=== PATIENT | female | born 1980 | race Hispanic/Latino ===

== ENCOUNTER 2018-02-05 16:45 | Emergency (ER) | payer SELFPAY ==
[2018-02-05 17:54] LABS: Absolute Lymphocytes (CBC) 0.9 K/uL (0.7-4.9); Absolute Monocytes 0.6 K/uL (0.1-1.3); Absolute Neutrophil 10.5 K/uL (1.8-8.0); Basophils % 0.2 % (0-1.3); Eosinophils % 0.2 % (0-4.4); Hematocrit 31.3 % (36.0-45.0); Lymphocytes % 7.5 % (15.3-44.8); MCH 23.3 pg (27.0-35.0); MCV 73.4 fL (80-100); MPV 7.9 fL (7.6-11.3); RBC Red Blood Cell Count 4.26 M/uL (3.86-4.86)
[2018-02-05 18:02] LABS: ALT/SGPT 13 U/L (12-78); AST/SGOT 12 U/L (15-37); Albumin 3.5 g/dL (3.4-5.0); Alkaline Phosphatase 124 U/L (45-117); Amylase Level 53 U/L (25-115); BUN Blood Urea Nitrogen 10 mg/dL (7-18); Bicarbonate 27 mmol/L (21-32); Bilirubin Direct 0.1 mg/dL (0-0.2); Bilirubin Total 0.4 mg/dL (0.2-1.0); Glucose Level 136 mg/dL (74-106); Lipase 153 U/L (73-393); Potassium 3.6 mmol/L (3.5-5.1); Protein, Total 7.6 g/dL (6.4-8.2); Sodium Level 139 mmol/L (136-145)
[2018-02-05 18:04] LABS: Urine Blood NEGATIVE (NEG); Urine Glucose NEGATIVE (NEG); Urine Protein TRACE (NEG); Urine Specific Gravity 1.025 (1.005-1.030)
[2018-02-05] MEDS ORDERED: MAGNE/ALUM HYDROXD 30 ML UCUP ONE (18:09)
[2018-02-05] MEDS ORDERED: LIDOCAINE VISCOUS 2% SOLN 15 ML UDC ONE (18:09)
[2018-02-05] MEDS ORDERED: ONDANSETRON 4 MG/2 ML VIAL ONE (18:09)
[2018-02-05 18:19] LABS: Urine Bacteria 20-50 /HPF (<20); Urine Culture Reflex Order REFLEXED; Urine RBC <5 /HPF (NONE SEEN)
[2018-02-05] MEDS ORDERED: KETOROLAC 30 MG/ML INJ ONE (18:57)
[2018-02-05] MEDS ORDERED: PEN G BENZ LA 1.2MU/2ML SYRINGE IM ONE (19:37)
--- NOTE | 2018-02-05 19:38 | ER ---
Nurse's Notes [facility] Name: Usha Romeo Age: 37 yrs Sex: Female : 1980 Arrival Date: 02/05/2018 Time: 16:47 Bed 17 Private MD: Diagnosis: Streptococcal pharyngitis;Upper abdominal pain, unspecified Presentation: 02/05 17:08 Presenting complaint: Patient states: body aches, sore throat, headache that began aj1 yesterday. Pt also reports chills. Denies cough. Pt states "I have gastritis pain because I took some antibiotics yesterday". Transition of care: patient was not received from another setting of care. Onset of symptoms was February 2018. Risk Assessment: Do you want to hurt yourself or someone else? Patient reports no desire to harm self or others. Initial Sepsis Screen: Does the patient meet any 2 criteria? No. Patient's initial sepsis screen is negative. Does the patient have a suspected source of infection? No. Patient's initial sepsis screen is negative. Care prior to arrival: None. 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 - Social history:: Smoking status: Patient uses tobacco products, denies chronic smoking, but will smoke occasionally. - Ebola Screening: : No symptoms or risks identified at this time. Screenin:57 Abuse screen: Denies threats or abuse. Denies injuries from another. Nutritional ch screening: No deficits noted. Tuberculosis screening: No symptoms or risk factors identified. Fall Risk None identified. Assessment: 17:57 General: Appears in no apparent distress. comfortable, Behavior is calm, cooperative, ch appropriate for age. Pain: Complains of pain in epigastric area and throat Pain currently is 8 out of 10 on a pain scale. Neuro: No deficits noted. Cardiovascular: Heart tones S1 S2 present Capillary refill < 3 seconds in bilateral fingers toes Clubbing of nail beds is absent Patient's skin is warm and dry. Respiratory: Airway is patent Respiratory effort is even, unlabored, Breath sounds are clear bilaterally. GI: Bowel sounds present X 4 quads. Abd is soft and non tender X 4 quads. Reports lower abdominal pain, upper abdominal pain, nausea. : No signs and/or symptoms were reported regarding the genitourinary system. EENT: Derm: Skin is pink, warm \\T\\ dry. Musculoskeletal: No signs and/or symptoms reported regarding the musculoskeletal system. 18:43 Reassessment: Patient appears in no apparent distress at this time. Patient and/or ch family updated on plan of care and expected duration. Pain level reassessed. Patient is alert, oriented x 3, equal unlabored respirations, skin warm/dry/pink. pt states her stomach feels better but she is still having headache and body aches. Patient states feeling better. Patient states symptoms have improved. 18:59 Reassessment: Patient appears in no apparent distress at this time. Damien at bedside ch explaining results with pt. 19:08 General: Appears in no apparent distress. comfortable, Behavior is calm, cooperative, ea appropriate for age. Pain: Complains of pain in abdomen and epigastric area. Neuro: Level of Consciousness is awake, alert, obeys commands, Oriented to person, place, time, situation. Cardiovascular: Patient's skin is warm and dry. Respiratory: Airway is patent Respiratory effort is even, unlabored, Respiratory pattern is regular, symmetrical, Breath sounds are clear bilaterally. GI: Bowel sounds present X 4 quads. Abd is soft and non tender X 4 quads. Reports lower abdominal pain, upper abdominal pain, nausea. : No signs and/or symptoms were reported regarding the genitourinary system. EENT: Reports sore throat. Derm: Skin is pink, warm \\T\\ dry. Musculoskeletal: No signs and/or symptoms reported regarding the musculoskeletal system. 19:55 Reassessment: Patient and/or family updated on plan of care and expected duration. Pain ea level reassessed. Patient is alert, oriented x 3, equal unlabored respirations, skin warm/dry/pink. Discharge instructions given to patient, verbalized the understanding of instructions Patient states feeling better. Patient states symptoms have improved. Vital Signs: 17:14 BP 110 / 75; Pulse 100; Resp 18 S; Temp 99.3(O); Pulse Ox 100% on R/A; Weight 78.02 kg aj1 (R); Pain 10/10; 18:43 BP 106 / 57; Pulse 80; Resp 15; Temp 98.8; Pulse Ox 98% on R/A; Pain 8/10; ch 19:09 BP 105 / 59; Pulse 80; Resp 18; Pulse Ox 100% ; Pain 7/10; ea ED Course: 16:47 Patient arrived in ED. mr 17:13 Triage completed. aj1 17:13 Arm band placed on. aj1 17:20 Damien Whyte PA is PHCP. [facility] 17:20 Otto Sampson MD is Attending Physician. [facility] 17:35 No apparent distress. Resting quietly. ch 17:35 No provider procedures requiring assistance completed. Urine collected: clean catch specimen. Inserted saline lock: 20 gauge in right antecubital area, using aseptic technique. Blood collected. 17:57 Yasmeen Zambrano, RN is Primary Nurse. 17:57 Patient has correct armband on for positive identification. Bed in low position. Call light in reach. Side rails up X 1. Pulse ox on. NIBP on. 18:43 No apparent distress. Resting quietly. ch 18:43 Door closed. Noise minimized. Lights dimmed. Warm blanket given. Pillow given. ch 19:01 Report given to Mira. 19:04 Mira Marroquin, RN is Primary Nurse. ea 19:37 Montana Schroeder MD is Referral Physician. [facility] 19:55 IV discontinued, intact, bleeding controlled, No redness/swelling at site. Pressure ea dressing applied. Administered Medications: 18:10 Drug: Zofran 4 mg Route: IVP; Site: right antecubital; ch 18:45 Follow up: Response: No adverse reaction; Marked relief of symptoms ch 18:10 Drug: GI Cocktail without - (Maalox Suspension 30 ml, Lidocaine Liquid 2 % 15 ch ml) Route: PO; 18:45 Follow up: Response: No adverse reaction; Marked relief of symptoms ch 19:05 Drug: Ketorolac 30 mg Route: IVP; Site: right antecubital; ea 19:38 Follow up: Response: No adverse reaction; Pain is decreased ea 19:37 Drug: Bicillin L-A 1.2 million units Route: IM; Site: left gluteus; ea 19:55 Follow up: Response: No adverse reaction ea Outcome: 19:37 Discharge ordered by MD. alejandra 19:54 Discharged to home ambulatory. yenifer 19:54 Condition: improved 19:54 Discharge instructions given to patient, Instructed on discharge instructions, follow up and referral plans. medication usage, Demonstrated understanding of instructions, follow-up care, medications, Prescriptions given X 2. 19:56 Patient left the ED. ea Signatures: Yasmeen Zambrano RN RN ch Johnson, Angela, RN RN aj1 Damien Whyte PA PA jmm Rivera, Maria mr Mira Marroquin RN RN ea
--- NOTE | 2018-02-05 19:38 | EDPHYS ---
Physician Documentation [facility] Name: Usha Romeo Age: 37 yrs Sex: Female : 1980 Arrival Date: 02/05/2018 Time: 16:47 Bed 17 Private MD: ED Physician Otto Sampson HPI: 02/05 17:32 This 37 yrs old Female presents to ER via Ambulatory with complaints of body jmm aches/chills/sore throat. 17:32 The patient presents with sore throat. Onset: The symptoms/episode began/occurred jmm gradually, 2 day(s) ago. Modifying factors: The symptoms are alleviated by nothing, the symptoms are aggravated by nothing. Associated signs and symptoms: Pertinent positives: chills. This is a 37 year old male with a history of DM that presents to the ED with sore throat beginning 2 days ago. Patient prescribed oral antibiotics and Tylenol. Patient states she developed abdominal pain today which similar to sunil episodes of gastritis. . 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 - Social history:: Smoking status: Patient uses tobacco products, denies chronic smoking, but will smoke occasionally. - Ebola Screening: : No symptoms or risks identified at this time. ROS: 17:32 Cardiovascular: Negative for chest pain, palpitations, and edema, Respiratory: Negative jmm for shortness of breath, cough, wheezing, and pleuritic chest pain. 17:32 Back: Negative for injury and pain, MS/Extremity: Negative for injury and deformity, Skin: Negative for injury, rash, and discoloration. 17:32 Constitutional: Positive for body aches, fever. 17:32 ENT: Positive for sore throat. 17:32 Abdomen/GI: Positive for abdominal pain. 17:32 Neuro: Positive for headache. 17:32 All other systems are negative. Exam: 17:32 Head/Face: atraumatic. jmm 17:32 Constitutional: The patient appears alert, awake, anxious. 17:32 ENT: Posterior pharynx: Uvula: normal, swelling, that is moderate, erythema, that is moderate. 17:32 Neck: ROM/movement: is normal. 17:32 Cardiovascular: Rate: normal, Rhythm: regular. 17:32 Respiratory: the patient does not display signs of respiratory distress, Respirations: normal, Breath sounds: are clear throughout. 17:32 Abdomen/GI: Inspection: abdomen appears normal, Bowel sounds: normal, Palpation: soft, nontender, in all quadrants. 17:32 Musculoskeletal/extremity: ROM: intact in all extremities. 17:32 Skin: Appearance: Color: normal in color. 17:32 Neuro: Orientation: is normal, Mentation: is normal, Memory: is normal. 17:32 Psych: Behavior/mood is pleasant, cooperative. Vital Signs: 17:14 BP 110 / 75; Pulse 100; Resp 18 S; Temp 99.3(O); Pulse Ox 100% on R/A; Weight 78.02 kg aj1 (R); Pain 10/10; 18:43 BP 106 / 57; Pulse 80; Resp 15; Temp 98.8; Pulse Ox 98% on R/A; Pain 8/10; ch 19:09 BP 105 / 59; Pulse 80; Resp 18; Pulse Ox 100% ; Pain 7/10; ea MDM: 17:21 Patient medically screened. [facility] 19:30 Data reviewed: vital signs, nurses notes, lab test result(s). Counseling: I had a [facility] detailed discussion with the patient and/or guardian regarding: the historical points, exam findings, and any diagnostic results supporting the discharge/admit diagnosis, lab results, the need for outpatient follow up, to return to the emergency department if symptoms worsen or persist or if there are any questions or concerns that arise at home. ED course: Patient has no abdominal pain on reevaluation. Patient is alert and non toxic in appearance in the ED. Symptoms appear consistent with strep pharyngitis. Patient given abx in the ED and advised to follow up with GI for abdominal pain. Patient given strict return precautions. Patient understood and agree with the plan of care. . 02/05 17:28 Order name: Amylase, Serum; Complete Time: 18:30 [facility] 02/05 17:28 Order name: Basic Metabolic Panel; Complete Time: 18:30 [facility] 02/05 17:28 Order name: CBC with Diff [facility] 02/05 17: Order name: Creatinine for Radiology; Complete Time: 18:30 [facility] 02/05 17:28 Order name: Hepatic Function; Complete Time: 18:30 [facility] 02/05 17:28 Order name: Lipase; Complete Time: 18:30 [facility] 02/05 17:28 Order name: Urine Microscopic Only; Complete Time: 18:30 [facility] 02/05 17:28 Order name: Strep; Complete Time: 18:30 [facility] 02/05 18:02 Order name: Urine Dipstick--Ancillary (enter results); Complete Time: 18:30 02/05 18:02 Order name: Urine --Ancillary (enter results); Complete Time: 18:30 02/05 18:21 Order name: Urine Culture [facility] 02/05 17:28 Order name: IV Saline Lock; Complete Time: 17:57 [facility] 02/05 17:28 Order name: Labs collected and sent; Complete Time: 17:57 [facility] 02/05 17:28 Order name: Urine Dipstick-Ancillary (obtain specimen); Complete Time: 17:57 jm Administered Medications: 18:10 Drug: Zofran 4 mg Route: IVP; Site: right antecubital; ch 18:45 Follow up: Response: No adverse reaction; Marked relief of symptoms ch 18:10 Drug: GI Cocktail without - (Maalox Suspension 30 ml, Lidocaine Liquid 2 % 15 ch ml) Route: PO; 18:45 Follow up: Response: No adverse reaction; Marked relief of symptoms ch 19:05 Drug: Ketorolac 30 mg Route: IVP; Site: right antecubital; ea 19:38 Follow up: Response: No adverse reaction; Pain is decreased ea 19:37 Drug: Bicillin L-A 1.2 million units Route: IM; Site: left gluteus; ea 19:55 Follow up: Response: No adverse reaction ea Disposition: 02/06 14:26 Co-signature as Attending Physician, Otto Sampson MD I agree with the assessment and diane plan of care. Disposition: 02/05/18 19:37 Discharged to Home. Impression: Streptococcal pharyngitis, Upper abdominal pain, unspecified. - Condition is Stable. - Discharge Instructions: Abdominal Pain, Adult, Pharyngitis, Strep Throat. - Prescriptions for omeprazole 40 mg Oral capsule,delayed release(DR/EC) - take 1 capsule by ORAL route once daily before a meal; 30 capsule. Carafate 1 gram Oral Tablet - take 2 tablet by ORAL route every 12 hours take on an empty stomach, beginning on waking and last dose at bedtime; 100 tablet. - Medication Reconciliation Form, Thank You Letter, Antibiotic Education, Prescription Opioid Use form. - Follow up: Montana Schroeder MD; When: 2 - 3 days; Reason: Recheck today's complaints, Continuance of care, Re-evaluation by your physician. Signatures: Dispatcher [employer] EDYasmeen Eldridge, RN RN Maribel Bailey RN RN aj1 Otto Sampson MD MD cha Mickail, Joel, PA PA jmm Antunez, Elena, RN RN ea Corrections: (The following items were deleted from the chart) 02/05 19:56 19:37 02/05/2018 19:37 Discharged to Home. Impression: Streptococcal pharyngitis; Upper ea abdominal pain, unspecified. Condition is Stable. Forms are Medication Reconciliation Form, Thank You Letter, Antibiotic Education, Prescription Opioid Use. Follow up: Montana Schroeder; When: 2 - 3 days; Reason: Recheck today's complaints, Continuance of care, Re-evaluation by your physician. ny
[2018-02-05 20:24] LABS: Blood Morphology Comment NOTED (NOT SEEN); Platelet Estimate INCR; Urine White Blood Cell Casts OK
== END 2018-02-05 19:56 | disposition home or self-care (01) ==
LOC: ER 16:45
DX: J02.0 Streptococcal pharyngitis (principal); R10.10 Upper abdominal pain, unspecified; E11.9 Type 2 diabetes mellitus without complications; F17.200 Nicotine dependence, unspecified, uncomplicated
CPT/HCPCS: 36415; 80048; 80076; 81003; 81015; 81025; 82150; 83690; 85025; 87081; 87086; 87088; 96372; 96374; 96375; 99284; J0561; J2405

== ENCOUNTER 2018-05-21 22:50 | Emergency (ER) | payer SELFPAY ==
--- NOTE | 2018-05-21 23:21 | EDPHYS ---
Physician Documentation [facility] Name: Usha Romeo Age: 37 yrs Sex: Female : 1980 Arrival Date: 05/21/2018 Time: 22:55 Bed 28 Private MD: ED Physician Otto Sampson HPI: 05/21 23:39 This 37 yrs old Female presents to ER via Ambulatory with complaints of Ear snw Pain. 23:39 The patient presents with a fullness, pain, tinnitus. The complaints affect the right snw ear. Onset: The symptoms/episode began/occurred suddenly, 2 day(s) ago, and became persistent. Associated signs and symptoms: Pertinent positives: tinnitus, lightheadedness. Severity of symptoms: At their worst the symptoms were moderate. The patient has not experienced similar symptoms in the past. It is unknown whether or not the patient has recently seen a physician. 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 - Social history:: Smoking status: Patient uses tobacco products, denies chronic smoking, but will smoke occasionally. - Ebola Screening: : No symptoms or risks identified at this time. ROS: 23:38 Eyes: Negative for injury, pain, redness, and discharge, Neck: Negative for injury, snw pain, and swelling, Cardiovascular: Negative for chest pain, palpitations, and edema, Respiratory: Negative for shortness of breath, cough, wheezing, and pleuritic chest pain, Abdomen/GI: Negative for abdominal pain, nausea, vomiting, diarrhea, and constipation, Back: Negative for injury and pain, : Negative for injury, bleeding, discharge, and swelling, MS/Extremity: Negative for injury and deformity, Skin: Negative for injury, rash, and discoloration, Neuro: Negative for headache, weakness, numbness, tingling, and seizure. 23:38 Constitutional: Positive for malaise. 23:38 ENT: Positive for ear pain, tinnitus, ear popping, pain to ear with swallowing. Exam: 23:37 Head/Face: Normocephalic, atraumatic. Eyes: Pupils equal round and reactive to light, snw extra-ocular motions intact. Lids and lashes normal. Conjunctiva and sclera are non-icteric and not injected. Cornea within normal limits. Periorbital areas with no swelling, redness, or edema. Neck: Trachea midline, no thyromegaly or masses palpated, and no cervical lymphadenopathy. Supple, full range of motion without nuchal rigidity, or vertebral point tenderness. No Meningismus. Chest/axilla: Normal chest wall appearance and motion. Nontender with no deformity. No lesions are appreciated. Cardiovascular: Regular rate and rhythm with a normal S1 and S2. No gallops, murmurs, or rubs. Normal PMI, no JVD. No pulse deficits. Respiratory: Lungs have equal breath sounds bilaterally, clear to auscultation and percussion. No rales, rhonchi or wheezes noted. No increased work of breathing, no retractions or nasal flaring. Abdomen/GI: Soft, non-tender, with normal bowel sounds. No distension or tympany. No guarding or rebound. No evidence of tenderness throughout. Back: No spinal tenderness. No costovertebral tenderness. Full range of motion. Skin: Warm, dry with normal turgor. Normal color with no rashes, no lesions, and no evidence of cellulitis. MS/ Extremity: Pulses equal, no cyanosis. Neurovascular intact. Full, normal range of motion. Neuro: Awake and alert, GCS 15, oriented to person, place, time, and situation. Cranial nerves II-XII grossly intact. Motor strength 5/5 in all extremities. Sensory grossly intact. Cerebellar exam normal. Normal gait. 23:37 Constitutional: The patient appears alert, awake, uncomfortable. 23:37 ENT: External ear(s): are unremarkable, Ear canal(s): are normal, TM's: decreased mobility, erythema, that is moderate, on the right, Nose: is normal, Mouth: is normal, Posterior pharynx: is normal, Voice: is normal. Vital Signs: 23:19 BP 117 / 54; Pulse 91; Resp 16; Temp 98.2; Pulse Ox 100% on R/A; Height 5 ft. 5 in. kr2 (165.10 cm); Pain 10/10; MDM: 23:11 Patient medically screened. snw 23:39 Data reviewed: vital signs, nurses notes. Data interpreted: Pulse oximetry: on room air snw is 100 %. Counseling: I had a detailed discussion with the patient and/or guardian regarding: the historical points, exam findings, and any diagnostic results supporting the discharge/admit diagnosis, the need for outpatient follow up, to return to the emergency department if symptoms worsen or persist or if there are any questions or concerns that arise at home. Special discussion: Based on the history and exam findings, there is no indication for further emergent testing or inpatient evaluation. I discussed with the patient/guardian the need to see the ENT specialist for further evaluation of the symptoms. I discussed with the patient/guardian the need to see the primary care provider for further evaluation of the symptoms. Administered Medications: 23:34 Drug: predniSONE 40 mg Route: PO; kr2 23:42 Follow up: Response: Medication administered at discharge. kr2 23:34 Drug: Pepcid 20 mg Route: PO; kr2 23:42 Follow up: Response: Medication administered at discharge. kr2 23:34 Drug: Augmentin 875 mg Route: PO; kr2 23:42 Follow up: Response: Medication administered at discharge. kr2 23:34 Drug: Phenergan 25 mg Route: PO; kr2 23:42 Follow up: Response: No adverse reaction kr2 Disposition: 05/22 07:05 Co-signature as Attending Physician, Otto Sampson MD I agree with the assessment and diane plan of care. Disposition: 05/21/18 23:18 Discharged to Home. Impression: Acute suppurative otitis media, Acute upper respiratory infection, unspecified. - Condition is Stable. - Discharge Instructions: Otitis Media, Adult, Upper Respiratory Infection, Adult, Viral Respiratory Infection, Cool Mist Vaporizer, Rehydration, Adult, Heat Therapy. - Prescriptions for Augmentin 500- 125 mg Oral Tablet - take 1 tablet by ORAL route every 8 hours for 10 days; 30 tablet. Zyrtec 10 mg Oral Tablet - take 1 tablet by ORAL route once daily As needed; 20 tablet. Prednisone 20 mg Oral Tablet - take 2 tablet by ORAL route once daily for 5 days; 10 tablet. Pepcid 20 mg Oral Tablet - take 1 tablet by ORAL route once daily; 20 tablet. - Medication Reconciliation Form, Thank You Letter, Antibiotic Education, Prescription Opioid Use form. - Follow up: Private Physician; When: 1 week; Reason: Recheck today's complaints, Continuance of care, Re-evaluation by your physician. Follow up: Emergency Department; When: As needed; Reason: Worsening of condition. Signatures: Otto Sampson MD MD cha Therrien, Shelly, BAKER BENCH-C BAKER BENCH-Csnw Marleni Zambrano, RN RN kr2 Corrections: (The following items were deleted from the chart) 05/21 23:43 23:18 05/21/2018 23:18 Discharged to Home. Impression: Acute suppurative otitis media; kr2 Acute upper respiratory infection, unspecified. Condition is Stable. Forms are Medication Reconciliation Form, Thank You Letter, Antibiotic Education, Prescription Opioid Use. Follow up: Private Physician; When: 1 week; Reason: Recheck today's complaints, Continuance of care, Re-evaluation by your physician. Follow up: Emergency Department; When: As needed; Reason: Worsening of condition. snw
--- NOTE | 2018-05-21 23:21 | ER ---
Nurse's Notes [facility] Name: Usha Romeo Age: 37 yrs Sex: Female : 1980 Arrival Date: 05/21/2018 Time: 22:55 Bed 28 Private MD: Diagnosis: Acute suppurative otitis media;Acute upper respiratory infection, unspecified Presentation: 05/21 23:16 Presenting complaint: Patient states: She has had congestion and runny nose for 1 week. kr2 Today she was swallowing and heard a pop in her ear, now she has severe pain, buzzing and throbbing in her ear. She also has dizziness. 23:16 Transition of care: patient was not received from another setting of care. Onset of kr2 symptoms was May 21, 2018. Risk Assessment: Do you want to hurt yourself or someone else? Patient reports no desire to harm self or others. Initial Sepsis Screen: Does the patient meet any 2 criteria? No. Patient's initial sepsis screen is negative. Does the patient have a suspected source of infection? No. Patient's initial sepsis screen is negative. Care prior to arrival: None. 23:16 Acuity: KEO 5 kr2 23:16 Method Of Arrival: Ambulatory kr2 Triage Assessment: 23:16 General: Appears in no apparent distress. uncomfortable, well groomed, well developed, kr2 well nourished, Behavior is calm, cooperative, appropriate for age. Pain: Complains of pain in right ear Pain radiates to face Pain currently is 10 out of 10 on a pain scale. Quality of pain is described as aching, Is continuous, Alleviated by nothing. Aggravated by sound Noted to be grimacing. EENT: Reports nasal congestion since 1 week ago Buzzing sound. Neuro: Level of Consciousness is awake, alert, obeys commands, Oriented to person, place, time, situation, Appropriate for age. Cardiovascular: Capillary refill < 3 seconds Patient's skin is warm and dry. Respiratory: Airway is patent Respiratory effort is even, unlabored, Respiratory pattern is regular, symmetrical. Derm: Skin is intact, is healthy with good turgor, Skin is pink, warm \T\ dry. 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 - Social history:: Smoking status: Patient uses tobacco products, denies chronic smoking, but will smoke occasionally. - Ebola Screening: : No symptoms or risks identified at this time. Screenin:16 Abuse screen: Denies threats or abuse. Denies injuries from another. Nutritional kr2 screening: No deficits noted. Tuberculosis screening: No symptoms or risk factors identified. Fall Risk None identified. Assessment: 23:15 Reassessment: See triage assessment. kr2 Vital Signs: 23:19 BP 117 / 54; Pulse 91; Resp 16; Temp 98.2; Pulse Ox 100% on R/A; Height 5 ft. 5 in. kr2 (165.10 cm); Pain 10/10; ED Course: 22:55 Patient arrived in ED. al2 23:00 Sherice Vargas FNP-C [facility]. snw 23:00 Otto Sampson MD is Attending Physician. snw 23:16 Arm band placed on left wrist. kr2 23:20 Patient has correct armband on for positive identification. Bed in low position. Call kr2 light in reach. Side rails up X 1. Pulse ox on. NIBP on. Door closed. Head of bed elevated. 23:26 Marleni Zambrano, RN is Primary Nurse. kr2 23:38 Triage completed. kr2 23:41 No provider procedures requiring assistance completed. Patient did not have IV access kr2 during this emergency room visit. Administered Medications: 23:34 Drug: predniSONE 40 mg Route: PO; kr2 23:42 Follow up: Response: Medication administered at discharge. kr2 23:34 Drug: Pepcid 20 mg Route: PO; kr2 23:42 Follow up: Response: Medication administered at discharge. kr2 23:34 Drug: Augmentin 875 mg Route: PO; kr2 23:42 Follow up: Response: Medication administered at discharge. kr2 23:34 Drug: Phenergan 25 mg Route: PO; kr2 23:42 Follow up: Response: No adverse reaction kr2 Outcome: 23:18 Discharge ordered by . snw 23:41 Discharged to home ambulatory, with family. kr2 23:41 Condition: good 23:41 Discharge instructions given to patient, family, Instructed on discharge instructions, follow up and referral plans. medication usage, Demonstrated understanding of instructions, follow-up care, medications, Prescriptions given X 4. 23:43 Patient left the ED. kr2 Signatures: Sherice Vargas, RADIO TECHNICIAN-C RADIO TECHNICIAN-Csnw Marleni Zambrano RN RN kr2 Ness Pulido
[2018-05-21] MEDS ORDERED: AMOX/K CLAV 875 MG TAB ONE (23:36)
[2018-05-21] MEDS ORDERED: PROMETHAZINE 25 MG TABLET ONE (23:36)
[2018-05-21] MEDS ORDERED: predniSONE 20 MG TAB ONE (23:36)
[2018-05-21] MEDS ORDERED: FAMOTIDINE 20 MG TAB ONE (23:37)
== END 2018-05-21 23:43 | disposition home or self-care (01) ==
LOC: ER 22:50
DX: H66.001 Acute suppurative otitis media without spontaneous rupture of ear drum, right ear (principal); J06.9 Acute upper respiratory infection, unspecified; Z72.0 Tobacco use
CPT/HCPCS: 99283; J7512

== ENCOUNTER 2021-04-15 21:41 | Emergency (ER) | payer SELFPAY ==
[2021-04-15 22:19] LABS: Urine Blood Negative (Negative); Urine Glucose Trace (Negative); Urine Protein Negative (Negative); Urine pH 6.5 (5.0-7.0)
[2021-04-15 22:57] LABS: Absolute Lymphocytes (CBC) 1.8 K/uL (0.7-4.9); Basophils % 0.8 % (0-1.3); Hematocrit 39.4 % (36.0-45.0); Lymphocytes % 17.3 % (15.3-44.8); MPV 7.7 fL (7.6-11.3); RBC Red Blood Cell Count 4.99 M/uL (3.86-4.86)
[2021-04-15 23:03] LABS: ALT/SGPT 35 U/L (12-78); AST/SGOT 56 U/L (15-37); Albumin 3.5 g/dL (3.4-5.0); Alkaline Phosphatase 206 U/L (45-117); BUN Blood Urea Nitrogen 8 mg/dL (7-18); Bicarbonate 25 mmol/L (21-32); Bilirubin Direct 0.3 mg/dL (0-0.2); Bilirubin Total 0.6 mg/dL (0.2-1.0); Glucose Level 217 mg/dL (74-106); Lipase 119 U/L (73-393); Potassium 3.5 mmol/L (3.5-5.1); Protein, Total 8.1 g/dL (6.4-8.2); Sodium Level 134 mmol/L (136-145)
[2021-04-15] MEDS ORDERED: ONDANSETRON 4 MG/2 ML VIAL ONE ×2 (23:29→23:42)
[2021-04-15] MEDS ORDERED: MAGNES/ALUMIN/SIMET 30ML UCUP ONE ×2 (23:29→23:44)
[2021-04-15] MEDS ORDERED: PANTOPRAZOLE 40 MG INJ ONE ×2 (23:29→23:42)
[2021-04-15] MEDS ORDERED: LIDOCAINE VISCOUS 2% SOLN 15 ML UDC ONE ×2 (23:30→23:44)
--- NOTE | 2021-04-16 00:35 | EDPHYS ---
Physician Documentation [facility] Name: Usha Romeo Age: 40 yrs Sex: Female : 1980 Arrival Date: 04/15/2021 Time: 21:44 Bed 18 Private MD: ED Physician Richar Garcia HPI: 04/15 23:12 This 40 yrs old Female presents to ER via Wheelchair with complaints of jr8 Abdominal Pain, Vomiting, HANDS TINGLING, Low Back Pain, NO MENTRUAL FOR 3 MONTHS. 23:12 The patient presents with abdominal pain in the upper abdomen. Onset: The jr8 symptoms/episode began/occurred gradually. The symptoms do not radiate. Associated signs and symptoms: Pertinent positives: nausea and vomiting. The symptoms are described as stabbing. Modifying factors: The symptoms are alleviated by nothing, the symptoms are aggravated by food. Severity of pain: At its worst the pain was moderate in the emergency department the pain is unchanged. The patient has experienced similar episodes in the past, a few times. The patient has not recently seen a physician. This is a 40-year-old female patient that presented emergency room with upper abdominal pain and left flank pain. Patient stated that she has a history of stomach ulcers in the past. Currently on no medications. Also stated that she has had mild urinary complaints and has come concerned that the flank pain is turning into a urinary tract infection.. Historical: - Allergies: 22:03 No Known Allergies; df1 - Home Meds: 22:03 None [Active]; df1 - PMHx: 22:03 Anemia; Diabetes - Diet controlled; ulcers; kidney infection; df1 - PSHx: 22:03 Cholecystectomy; df1 - Immunization history:: Adult Immunizations up to date, Client reports having NOT received the Covid vaccine. - Social history:: Smoking status: Patient reports the use of cigarette tobacco products, smokes one-half pack cigarettes per day. ROS: 23:12 Eyes: Negative for injury, pain, redness, and discharge, ENT: Negative for injury, jr8 pain, and discharge, Neck: Negative for injury, pain, and swelling, Cardiovascular: Negative for chest pain, palpitations, and edema, Respiratory: Negative for shortness of breath, cough, wheezing, and pleuritic chest pain, Back: Negative for injury and pain, MS/Extremity: Negative for injury and deformity, Skin: Negative for injury, rash, and discoloration, Neuro: Negative for headache, weakness, numbness, tingling, and seizure. 23:12 Abdomen/GI: Positive for abdominal pain, nausea and vomiting, Negative for diarrhea. Exam: 23:12 Constitutional: This is a well developed, well nourished patient who is awake, alert, jr8 and in no acute distress. Cardiovascular: Regular rate and rhythm with a normal S1 and S2. No gallops, murmurs, or rubs. Normal PMI, no JVD. No pulse deficits. Respiratory: Lungs have equal breath sounds bilaterally, clear to auscultation and percussion. No rales, rhonchi or wheezes noted. No increased work of breathing, no retractions or nasal flaring. Back: No spinal tenderness. No costovertebral tenderness. Full range of motion. Skin: Warm, dry with normal turgor. Normal color with no rashes, no lesions, and no evidence of cellulitis. MS/ Extremity: Pulses equal, no cyanosis. Neurovascular intact. Full, normal range of motion. Neuro: Awake and alert, GCS 15, oriented to person, place, time, and situation. Cranial nerves II-XII grossly intact. Motor strength 5/5 in all extremities. Sensory grossly intact. Cerebellar exam normal. Normal gait. 23:12 Abdomen/GI: Inspection: obese Bowel sounds: active, all quadrants, Palpation: soft, in all quadrants, mild abdominal tenderness, in the left upper quadrant, moderate abdominal tenderness, in the epigastric area, mass, is not appreciated, rebound tenderness, is not appreciated, voluntary guarding, is not appreciated, involuntary guarding, is not appreciated, no appreciated organomegaly, Indicators: McBurney's point is not tender, Amher's sign is negative, Rovsing's sign is negative, Liver: tenderness, is not appreciated. Vital Signs: 22:00 BP 102 / 73; Pulse 111; Resp 18; Temp 98.8; Pulse Ox 100% on R/A; Weight 84.37 kg; df1 Height 5 ft. 2 in. (157.48 cm); Pain 10/10; 04/16 00:16 BP 101 / 80; Pulse 93; Resp 16 S; Pulse Ox 98% on R/A; Pain 4/10; sj1 04/15 22:00 Body Mass Index 34.02 (84.37 kg, 157.48 cm) df1 MDM: 04/15 22:31 Patient medically screened. jr8 04/16 00:19 Data reviewed: vital signs, nurses notes, lab test result(s), radiologic studies, CT jr8 scan. Data interpreted: Pulse oximetry: on room air is 98 %. Interpretation: normal. 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 Special discussion: Based on the patient's Hx, exam, and Dx evaluation, there is no indication for emergent surgery or inpatient Tx. It is understood by the patient/guardian that if the Sx's persist or worsen they need to return immediately for re-evaluation. 00:39 ED course: Discussed with patient that her upper abdominal pain is probably a sequela jr8 of her ulcers or gastritis. Patient is doing much better after being medicated. We will continue omeprazole and dicyclomine at home. He is to follow-up with gastroenterology. As far as the amenorrhea for the last 3 months patient is to follow-up with [facility] for Pap smear and possible hormone draw. Patient good with this plan at this time will follow up.. 04/15 22:19 Order name: Urine Dipstick-Ancillary; Complete Time: 22:47 EDMS 04/15 22:25 Order name: Basic Metabolic Panel; Complete Time: 23:10 em 04/15 22:25 Order name: CBC with Diff; Complete Time: 22:58 em 04/15 22:25 Order name: Hepatic Function; Complete Time: 23:10 em 04/15 22:25 Order name: Lipase; Complete Time: 23:10 em 04/15 23:24 Order name: Urine --Ancillary (enter results) sj1 04/15 22:25 Order name: IV Saline Lock; Complete Time: 22:40 em 04/15 22:56 Order name: CT Abd/Pelvis - IV Contrast Only jr8 04/15 23:25 Order name: Urine --Ancillary; Complete Time: 00:39 EDMS 04/15 23:48 Order name: Urine --Ancillary; Complete Time: 00:39 EDMS 04/15 22:25 Order name: Labs collected and sent; Complete Time: 22:40 em 04/15 22:56 Order name: Urine Test (obtain specimen); Complete Time: 23:21 jr8 Administered Medications: 04/15 23:20 Drug: Zofran (Ondansetron) 4 mg Route: IVP; Site: left antecubital; sj1 04/16 00:16 Follow up: Response: No adverse reaction; Pain is decreased sj1 04/15 23:20 Drug: ProTONIX (pantoprazole) 40 mg Route: IVP; Site: left antecubital; sj1 04/16 00:16 Follow up: Response: No adverse reaction; Pain is decreased sj1 04/15 23:20 Drug: GI Cocktail without - (Maalox Suspension 30 ml, Lidocaine Liquid 2 % 15 sj1 ml) Route: PO; 04/16 00:16 Follow up: Response: No adverse reaction; Pain is decreased sj1 Disposition: 01:59 Co-signature as Attending Physician, Richar Garcia MD I agree with the assessment and rn plan of care. Attestation: The patient's history, exam findings, diagnostics, and a summary of any interventions or procedures was reviewed in detail with Aramis WILLIAMSON. Disposition Summary: 04/16/21 00:34 Discharge Ordered Location: Home jr8 Problem: new jr8 Symptoms: have improved jr8 Condition: Stable jr8 Diagnosis - Acute gastritis jr8 Followup: jr8 - With: Private Physician - When: 2 - 3 days - Reason: Recheck today's complaints, Continuance of care, Re-evaluation by your physician Discharge Instructions: - Discharge Summary Sheet jr8 - Gastritis, Adult jr8 - Peptic Ulcer jr8 Forms: - Medication Reconciliation Form jr8 - Thank You Letter jr8 - Antibiotic Education jr8 - Prescription Opioid Use jr8 Prescriptions: - omeprazole 40 mg Oral capsule,delayed release(DR/EC) - take 1 capsule by ORAL route once daily before a meal; 30 capsule; Refills: 0, jr8 Product Selection Permitted - dicyclomine 20 mg Oral Tablet - take 1 tablet by ORAL route 3 times per day As needed; 20 tablet; Refills: 0, jr8 Product Selection Permitted Signatures: Dispatcher [employer] EDMS Ravindra Nolen, RN RN Richar Quiroz MD MD rn Roszak, Josh, PA PA jr8 Anastasia Bishop df1 Dottie Beckett RN RN sj1 Corrections: (The following items were deleted from the chart) 04/15 22:07 22:03 PMHx: Diabetes - NIDDM; df1 df1 04/16 00:13 04/15 23:49 URINE --ANCILLARY+UC.LAB.BRZ ordered. EDMS EDMS
--- NOTE | 2021-04-16 00:35 | ER ---
Nurse's Notes [facility] Name: Usha Romeo Age: 40 yrs Sex: Female : 1980 Arrival Date: 04/15/2021 Time: 21:44 Bed 18 Private MD: Diagnosis: Acute gastritis Presentation: 04/15 22:00 Chief complaint: Patient states: upper abd pain and left flank pain x 2 weeks df1 increasing today. Coronavirus screen: Vaccine status: Patient reports being unvaccinated. The client reports previous COVID testing was negative. Date of collection: January 2021. Ebola Screen: Patient negative for fever greater than or equal to 101.5 degrees Fahrenheit, and additional compatible Ebola Virus Disease symptoms Patient denies exposure to infectious person. Patient denies travel to an Ebola-affected area in the 21 days before illness onset. Initial Sepsis Screen: Does the patient meet any 2 criteria? No. Patient's initial sepsis screen is negative. Does the patient have a suspected source of infection? No. Patient's initial sepsis screen is negative. Risk Assessment: Do you want to hurt yourself or someone else? Patient reports no desire to harm self or others. 22:00 Method Of Arrival: Wheelchair df1 22:00 Acuity: KEO 3 df1 22:07 Note Pt states upper abd pain, left flank pain and some blood in urine. Symptoms worse df1 today. 23:42 Onset of symptoms was March 29, 2021. sj1 Triage Assessment: 23:26 General: Appears in no apparent distress. Behavior is calm, cooperative, appropriate sj1 for age. Pain: Complains of pain in left upper quadrant and epigastric area Pain does not radiate. Pain currently is 6 out of 10 on a pain scale. at worst was 10 out of 10 on a pain scale. level that patient reports is acceptable is 2 out of 10 on a pain scale. Quality of pain is described as sharp, Pain began 1 wk ago. EENT: No deficits noted. Neuro: No deficits noted. Cardiovascular: No deficits noted. Respiratory: No deficits noted. GI: Reports upper abdominal pain, epigastric pain. : Reports burning with urination. Derm: No deficits noted. Musculoskeletal: No deficits noted. Historical: - Allergies: 22:03 No Known Allergies; df1 - Home Meds: 22:03 None [Active]; df1 - PMHx: 22:03 Anemia; Diabetes - Diet controlled; ulcers; kidney infection; df1 - PSHx: 22:03 Cholecystectomy; df1 - Immunization history:: Adult Immunizations up to date, Client reports having NOT received the Covid vaccine. - Social history:: Smoking status: Patient reports the use of cigarette tobacco products, smokes one-half pack cigarettes per day. Screenin:24 Abuse screen: Denies threats or abuse. Denies injuries from another. Nutritional sj1 screening: No deficits noted. Tuberculosis screening: No symptoms or risk factors identified. Fall Risk None identified. Assessment: 23:29 GI: Bowel sounds present X 4 quads. Abd is soft Abdomen is tender to palpation. sj1 Vital Signs: 22:00 BP 102 / 73; Pulse 111; Resp 18; Temp 98.8; Pulse Ox 100% on R/A; Weight 84.37 kg; df1 Height 5 ft. 2 in. (157.48 cm); Pain 10/10; 04/16 00:16 BP 101 / 80; Pulse 93; Resp 16 S; Pulse Ox 98% on R/A; Pain 4/10; sj1 04/15 22:00 Body Mass Index 34.02 (84.37 kg, 157.48 cm) df1 ED Course: 04/15 21:44 Patient arrived in ED. cf2 22:03 Triage completed. df1 22:30 Inserted saline lock: 20 gauge in left antecubital area, using aseptic technique. Blood sj1 collected. 22:31 Aramis Flor PA is PHCP. jr8 22:31 Richar Garcia MD is Attending Physician. jr8 23:24 No provider procedures requiring assistance completed. sj1 23:24 Patient has correct armband on for positive identification. Bed in low position. Call sj1 light in reach. Side rails up X 1. 23:26 Arm band placed on right wrist. sj1 23:41 Urine --Ancillary (enter results) Sent. sj1 23:41 CT Abd/Pelvis - IV Contrast Only Sent. sj1 23:41 Urine --Ancillary Sent. sj1 23:50 CT Abd/Pelvis - IV Contrast Only In Process Unspecified. EDMS 04/16 00:44 IV discontinued, intact, bleeding controlled, No redness/swelling at site. sj1 Administered Medications: 04/15 23:20 Drug: Zofran (Ondansetron) 4 mg Route: IVP; Site: left antecubital; sj1 04/16 00:16 Follow up: Response: No adverse reaction; Pain is decreased sj1 04/15 23:20 Drug: ProTONIX (pantoprazole) 40 mg Route: IVP; Site: left antecubital; sj1 04/16 00:16 Follow up: Response: No adverse reaction; Pain is decreased sj1 04/15 23:20 Drug: GI Cocktail without - (Maalox Suspension 30 ml, Lidocaine Liquid 2 % 15 sj1 ml) Route: PO; 04/16 00:16 Follow up: Response: No adverse reaction; Pain is decreased sj1 Outcome: 00:34 Discharge ordered by . jr8 00:43 Discharged to home ambulatory. sj1 00:43 Condition: stable 00:43 Discharge instructions given to patient, Instructed on discharge instructions, follow up and referral plans. medication usage, Demonstrated understanding of instructions, follow-up care, medications, Prescriptions given X 2. 01:07 Patient left the ED. sj1 Signatures: Dispatcher [employer] EDMS Aramis Flor PA PA jr8 Avery Edwards cf2 Anastasia Bishop df1 Dottie Beckett, RN RN sj1 Corrections: (The following items were deleted from the chart) 04/15 22:07 22:03 PMHx: Diabetes - NIDDM; df1 df1
[2021-04-16 01:20] VITALS: TEMP 98.8
[2021-04-16 01:21] VITALS: BP 101/80; O2SAT 98
--- NOTE | 2021-04-16 10:21 | RAD REPORT ---
EXAM DESCRIPTION: CT - Abdomen Pelvis W Contrast - 04/16/2021 6:41 am CLINICAL HISTORY: 40 years Female ABD PAIN TECHNIQUE: CT of the abdomen and pelvis using intravenous contrast. All CT scans at this facility us e dose modulation, iterative reconstruction, and/or weight based dosing when appropriate to reduce ra diation dose to as low as reasonably achievable. COMPARISON: None. FINDINGS: Lower chest: Lung bases are clear. Abdomen/Pelvis: Liver: No focal lesion. Gallbladder: No calcified stone. Pancreas: Within normal limits. Spleen: Within normal limits. Kidney: No stone or hydronephrosis. Scarring the left kidney.. Adrenal glands: Within normal limits. Vascular structures: Unremarkable. Bowel: No bowel distention. Appendix: Normal. Peritoneum: No free fluid or free air. Lymph Nodes: No lymphadenopathy. Reproductive: Right ovarian cyst measuring 4.2 x 3.8 cm. Left ovarian cyst measuring 2.3 x 2.0 cm. Urinary bladder: Unremarkable. Osseous structures: Unremarkable. Soft tissues: Unremarkable. IMPRESSION: 1. No acute findings. 2. Bilateral simple ovarian cysts as above. No follow-up imaging is recommended. Reference: J Am Leigh Radiol 2013;[id number] Electronically signed by: Migue Jo MD 04/16/2021 12:09 AM CDT Due to temporary technical issues with the PACS/Fluency reporting system, reports are being signed by the in house radiologists without review as a courtesy to insure prompt reporting. The interpreting radiologist is fully responsible for the content of the report.
== END 2021-04-16 01:07 | disposition home or self-care (01) ==
LOC: ER 21:41
DX: K29.70 Gastritis, unspecified, without bleeding (principal); F17.210 Nicotine dependence, cigarettes, uncomplicated
CPT/HCPCS: 36415; 74177; 80048; 80076; 81003; 81025; 83690; 85025; 96374; 96375; 99284; C9113; J2405; Q9967

== ENCOUNTER 2021-10-22 07:20 | Emergency (ER) | payer SELFPAY ==
--- OUTSIDE RECORDS SUMMARY | 2021-10-22 07:24 | XMS REPORT | Continuity of Care Document ---
:1980 Author Organization [facility] t Address [address] [place] [address] [address] [place] [address] Care Team Providers Name Role Phone Jamila MALHOTRA, Bonita Brennan Attending Clinician Adelaide Jean-Baptiste MD Attending Clinician Andrew SMITH Attending Clinician Unavailable Payers Payer Name Policy Type Policy Number Effective Date Expiration Date [facility] MEDICAID [place] PENDING 2021 PENDING 00:00:00 Problems This patient has no known problems. Allergies, Adverse Reactions, Alerts Allergy Allergy Status Severity Reaction(s) Onset Inactive Treating Comm ents Source Name Type Date Date Clinician PROMETHA DRUG Active Unknown-Cmnt 2016-0 Un kathy ZINE HCL INGREDI -08 ity of 00:00: [address] Medications This patient has no known medications. Procedures This patient has no known procedures. Encounters Start End Encounter Admission Attending Care Care Encounter Source Date/Time Date/Time Type Type Clinicians Facility Department ID 2021-05-04 Emergency [facility] [id number] [facility] 11:53:02 [facility] of [facility] 2021-05-04 Emergency [facility] [id number] [facility] 05:49:40 ity of [facility] 2021-05-03 Emergency [facility] [id number] [facility] 03:43:41 ity [facility] 2021-05-01 Emergency [facility] [id number] [facility] 11:24:45 ity [facility] 2021-05-01 Emergency [facility] [id number] [facility] 07:34:38 [facility] 2020-02-10 2020-02-10 Emergency Jamila, TRAUMA [id number] 18:50:00 23:45:00 [facility] [id number] 2020-01-21 2020-01-21 Emergency Vasut, TRAUMA [id number] 08:10:19 11:57:00 [facility] [id number] 2019-06-04 2019-06-05 Emergency X SARAH, [facility] ERT [id number] Univers 20:45:32 02:02:00 TANA [facility] Results This patient has no known results.
--- NOTE | 2021-10-22 07:54 | ER ---
Nurse's Notes [facility] Name: Usha Romeo Age: 40 yrs Sex: Female : 1980 Arrival Date: 10/22/2021 Time: 07:28 Bed Waiting [facility] MD: Diagnosis: Acute serous otitis media, left ear Presentation: 10/22 07:41 Chief complaint: Patient states: Left ear pain x 1 day, minor nasal congestion and sore jl7 throat. Coronavirus screen: At this time, the client does not indicate any symptoms associated with coronavirus-19. Ebola Screen: No symptoms or risks identified at this time. Initial Sepsis Screen: Does the patient meet any 2 criteria? No. Patient's initial sepsis screen is negative. Does the patient have a suspected source of infection? No. Patient's initial sepsis screen is negative. Risk Assessment: Do you want to hurt yourself or someone else? Patient reports no desire to harm self or others. Onset of symptoms was October 21, 2021. 07:41 Method Of Arrival: Ambulatory jl7 07:41 Acuity: KEO 4 jl7 Triage Assessment: 07:42 General: Appears in no apparent distress. uncomfortable, Behavior is calm, cooperative, jl7 appropriate for age. Pain: Complains of pain in left ear. EENT: Reports nasal congestion pain in left ear. 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 - Social history:: Smoking status: Patient denies any tobacco usage or history of. Patient/guardian denies using alcohol, street drugs, The patient lives with family. - Family history:: not pertinent. Screenin:48 Abuse screen: Denies threats or abuse. Denies injuries from another. Nutritional jl7 screening: No deficits noted. Tuberculosis screening: No symptoms or risk factors identified. Fall Risk None identified. Assessment: 07:48 Reassessment: Dr. Shah in triage assessing pt. jl7 Vital Signs: 07:41 BP 116 / 63; Pulse 79; Resp 17; Temp 97; Pulse Ox 97% ; Pain 9/10; jl7 ED Course: 07:28 Patient arrived in ED. am2 07:42 Triage completed. jl7 07:42 Arm band placed on right wrist. jl7 07:48 Patient has correct armband on for positive identification. jl7 07:48 No provider procedures requiring assistance completed. Patient did not have IV access jl7 during this emergency room visit. 07:49 Basim Shah MD is Attending Physician. minh2 Administered Medications: No medications were administered Outcome: 07:53 Discharge ordered by . ma2 08:02 Discharged to home ambulatory. jl7 08:02 Condition: stable 08:02 Discharge instructions given to patient, Instructed on discharge instructions, follow up and referral plans. medication usage, Demonstrated understanding of instructions, follow-up care, medications, Prescriptions given X 2. 08:03 Patient left the ED. jl7 Signatures: Obdulia Erickson RN RN jl7 Christina Schmid am2 Basim Shah MD MD or2 Corrections: (The following items were deleted from the chart) 07:43 07:42 PMHx: Diabetes - Diet controlled; jl7 jl7
--- NOTE | 2021-10-22 07:54 | EDPHYS ---
Physician Documentation [facility] Name: Usha Romeo Age: 40 yrs Sex: Female : 1980 Arrival Date: 10/22/2021 Time: 07:28 Bed Waiting Private MD: ED Physician Basim Shah HPI: 10/22 07:52 This 40 yrs old Female presents to ER via Ambulatory with complaints of Ear ma2 Pain, Sore Throat. 07:52 Left ear pain for 2 days mild constant intermittent, mild no fever, mild sore throat, ma2 no cough.. 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 - Social history:: Smoking status: Patient denies any tobacco usage or history of. Patient/guardian denies using alcohol, street drugs, The patient lives with family. - Family history:: not pertinent. ROS: 07:52 Constitutional: Negative for fever, chills, and weight loss. ma2 07:52 All other systems are negative. Exam: 07:52 Constitutional: This is a well developed, well nourished patient who is awake, alert, ma2 and in no acute distress. Head/Face: Normocephalic, atraumatic. Eyes: Pupils equal round and reactive to light, extra-ocular motions intact. Lids and lashes normal. Conjunctiva and sclera are non-icteric and not injected. Cornea within normal limits. Periorbital areas with no swelling, redness, or edema. ENT: Left TM is red, otherwise nares patent. No nasal discharge, no septal abnormalities noted. Tympanic membranes are normal and external auditory canals are clear. Oropharynx with no redness, swelling, or masses, exudates, or evidence of obstruction, uvula midline. Mucous membranes moist. Chest/axilla: Normal chest wall appearance and motion. Nontender with no deformity. No lesions are appreciated. Cardiovascular: Regular rate and rhythm with a normal S1 and S2. No gallops, murmurs, or rubs. Normal PMI, no JVD. No pulse deficits. Respiratory: Lungs have equal breath sounds bilaterally, clear to auscultation and percussion. No rales, rhonchi or wheezes noted. No increased work of breathing, no retractions or nasal flaring. Abdomen/GI: Soft, non-tender, with normal bowel sounds. No distension or tympany. No guarding or rebound. No evidence of tenderness throughout. Neuro: Awake and alert, GCS 15, oriented to person, place, time, and situation. Cranial nerves II-XII grossly intact. Motor strength 5/5 in all extremities. Sensory grossly intact. Cerebellar exam normal. Normal gait. Vital Signs: 07:41 BP 116 / 63; Pulse 79; Resp 17; Temp 97; Pulse Ox 97% ; Pain 9/10; jl7 MDM: 07:52 Differential diagnosis: otitis media, otitis externa, acute otalgia, cerumen impaction. ma2 Data reviewed: vital signs, nurses notes. Counseling: I had a detailed discussion with the patient and/or guardian regarding: the historical points, exam findings, and any diagnostic results supporting the discharge/admit diagnosis, the presence of at least one elevated blood pressure reading (>120/80) during this emergency department visit, the need for outpatient follow up. Response to treatment: the patient's symptoms have markedly improved after treatment. 07:53 Patient medically screened. ma2 Administered Medications: No medications were administered Disposition Summary: 10/22/21 07:53 Discharge Ordered Location: Home ma2 Condition: Stable ma2 Diagnosis - Acute serous otitis media, left ear ma2 Followup: ma2 - With: Private Physician - When: Tomorrow - Reason: If symptoms return, Continuance of care Discharge Instructions: - Discharge Summary Sheet ma2 - Otitis Media, Adult ma2 Forms: - Medication Reconciliation Form ma2 - Thank You Letter ma2 - Antibiotic Education ma2 - Prescription Opioid Use ma2 Prescriptions: - NAPROXIN - take 200 milligram by ORAL route 3 times per day; 6000 milligram; Refills: 0, ma2 Product Selection Permitted - Augmentin 875-125 mg Oral Tablet - take 1 tablet by ORAL route every 12 hours for 10 days; 20 tablet; Refills: 0, ma2 Product Selection Permitted Signatures: Obdulia Erickson RN RN jl7 Basim Shah MD MD ma2 Corrections: (The following items were deleted from the chart) 07:43 07:42 PMHx: Diabetes - Diet controlled; alina jl7
[2021-10-22 08:14] VITALS: BP 116/63; TEMP 97; O2SAT 97
== END 2021-10-22 08:03 | disposition home or self-care (01) ==
LOC: ER 07:20
DX: H65.02 Acute serous otitis media, left ear (principal); E11.9 Type 2 diabetes mellitus without complications; D64.9 Anemia, unspecified
CPT/HCPCS: 99282

== ENCOUNTER 2022-02-07 06:01 | Emergency (ER) | payer SELFPAY ==
--- OUTSIDE RECORDS SUMMARY | 2022-02-07 06:04 | XMS REPORT | Continuity of Care Document ---
:1980 Author Organization [facility] Address [address] [place] [address] Care Team Providers Name Role Phone Jamila MALHOTRA, Bonita Brennan Attending Clinician Hema Jean-Baptiste MD Attending Clinician TANA SMITH Attending Clinician Unavailable Payers Payer Name Policy Type Policy Number Effective Date Expiration Date S our MEDICAID [place] PENDING 2021 PENDING 00:00:00 Problems This patient has no known problems. Allergies, Adverse Reactions, Alerts Allergy Allergy Status Severity Reaction(s) Onset Inactive Treating Comm ents Source Name Type Date Date Clinician PROMETHA DRUG Active Unknown-Cmnt 2016-0 Un kathy ZINE HCL INGREDI -08 ity of 00:00: [address] Medications This patient has no known medications. Procedures This patient has no known procedures. Encounters Start End Encounter Admission Attending Care Care Encounter Source Date/Time Date/Time Type Type Clinicians Facility Department ID 2021-05-04 Emergency [facility] [id number] Univers 11:53:02 ity of [facility] 2021-05-04 Emergency [facility] [id number] Univers 05:49:40 ity of [facility] 2021-05-03 Emergency [facility] [id number] Univers 03:43:41 ity [facility] 2021-05-01 Emergency [facility] [id number] Univers 11:24:45 ity [facility] 2021-05-01 Emergency [facility] [id number] Univers 07:34:38 dano [facility] 2020-02-10 2020-02-10 Emergency Jamila, TRAUMA [id number] 18:50:00 23:45:00 [facility] [id number] 2020-01-21 2020-01-21 Emergency Vasut, TRAUMA [id number] 08:10:19 11:57:00 [facility] [id number] 2019-06-04 2019-06-05 Emergency X SARAH, [facility] ERT [id number] Univers 20:45:32 02:02:00 TANA lorna [facility] Results This patient has no known results.
--- NOTE | 2022-02-07 07:08 | ER ---
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 pt states she has had vaginal as6 itching and hives x2 weeks. Coronavirus screen: At this time, the client does not indicate any symptoms associated with coronavirus-19. Ebola Screen: No symptoms or risks identified at this time. Initial Sepsis Screen: Does the patient meet any 2 criteria? No. Patient's initial sepsis screen is negative. Does the patient have a suspected source of infection? No. Patient's initial sepsis screen is negative. Risk Assessment: Do you want to hurt yourself or someone else? Patient reports no desire to harm self or others. Onset of symptoms was January 25, 2022. 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 - Social history:: Smoking status: Patient/guardian denies using tobacco. - Family history:: not pertinent. Screenin:18 Abuse screen: Denies threats or abuse. Denies injuries from another. Nutritional as6 screening: No deficits noted. Tuberculosis screening: No symptoms or risk factors identified. Fall Risk None identified. Assessment: 06:30 General: Appears in no apparent distress. uncomfortable, Behavior is calm, cooperative. as6 Pain: Complains of pain in groin Quality of pain is described as stinging. Neuro: Level of Consciousness is awake, alert, obeys commands, Oriented to person, place, time, situation. Respiratory: Respiratory effort is even, unlabored. : Reports discharge, from vagina that is white, vaginal itching. 07:20 Reassessment: Patient and/or family updated on plan of care and expected duration. Pain ha1 level reassessed. Patient is alert, oriented x 3, equal unlabored respirations, skin warm/dry/pink. 07:54 Reassessment: Patient and/or family updated on plan of care and expected duration. Pain ha1 level reassessed. Patient is alert, oriented x 3, equal unlabored respirations, skin warm/dry/pink. Vital Signs: 06:11 BP 127 / 71; Pulse 85; Resp 18 S; Temp 98.3(O); Pulse Ox 100% on R/A; Weight 88 kg (R); as6 Height 5 ft. 5 in. (165.10 cm) (R); Pain 8/10; 07:35 BP 127 / 70; Pulse 82; Resp 16 S; Pulse Ox 100% on R/A; ha1 06:11 Body Mass Index 32.28 (88.00 kg, 165.10 cm) as6 ED Course: 06:04 Patient arrived in ED. bp1 06:09 Chandan Lundy, MADALYN is Primary Nurse. as6 06:17 Otto Sampson MD is Attending Physician. diane 06:18 Triage completed. as6 06:18 Arm band placed on. as6 06:19 Bed in low position. Call light in reach. Side rails up X 1. Pulse ox on. NIBP on. as6 07:06 Blanca Jimenez MD is Referral Physician. diane 07:44 Assisted to bathroom. bm7 07:44 Urine collected: clean catch specimen, clear. bm7 08:04 No provider procedures requiring assistance completed. Patient did not have IV access ha1 during this emergency room visit. Administered Medications: 07:49 Drug: Rocephin (cefTRIAXone) 1 grams Route: IM; Site: right ventrogluteal; ha1 08:05 Follow up: Response: No adverse reaction ha1 07:49 Drug: Zithromax (azithromycin) 1 grams Route: PO; ha1 08:05 Follow up: Response: No adverse reaction ha1 07:49 Drug: metFORMIN 1000 mg Route: PO; ha1 08:05 Follow up: Response: No adverse reaction ha1 07:49 Drug: DiFLUcan (fluconazole) 200 mg Route: PO; ha1 08:05 Follow up: Response: No adverse reaction ha1 07:49 Drug: Flagyl (metroNIDAZOLE) 2 grams Route: PO; ha1 08:05 Follow up: Response: No adverse reaction ha1 07:51 Drug: Semglee Pen Injector 100 unit/mL 30 units {Note: glucose at 222.} Route: Sub-Q; ha1 Site: left upper abdomen; 08:05 Follow up: Response: No adverse reaction ha1 Medication: 08:05 VIS not applicable for this client. ha1 Outcome: 07:07 Discharge ordered by . diane 08:05 Discharged to home ambulatory. ha1 08:05 Condition: stable 08:05 Discharge instructions given to patient, Instructed on discharge instructions, follow up and referral plans. medication usage, Demonstrated understanding of instructions, follow-up care, medications, Prescriptions given X 4. 08:06 Patient left the ED. ha1 Signatures: Otto Sampson MD MD cha Paniauga, Brittany bp1 McCarthy, Brittany, RN RN bm7 Chandan Lundy RN RN as6 Jenn Tran, MADALYN RN ha1 Corrections: (The following items were deleted from the chart) 08:12 07:55 Response: No adverse reaction ha1 ha1 08:12 07:50 Response: No adverse reaction ha1 ha1 08:13 08:07 Response: No adverse reaction ha1 ha1 08:13 08:07 Response: No adverse reaction ha1 ha1
--- NOTE | 2022-02-07 07:08 | EDPHYS ---
Physician Documentation [facility] Name: Usha Romeo Age: 41 yrs Sex: Female : 1980 Arrival Date: 02/07/2022 Time: 06:04 Bed 6 Private MD: ED Physician Otto Sampson HPI: 02/07 07:00 This 41 yrs old Female presents to ER via Ambulatory with complaints of diane Vaginal Itching. 07:00 The patient presents with vaginal discharge, that is curd-like. Onset: The diane symptoms/episode began/occurred 3 day(s) ago. Modifying factors: The symptoms are alleviated by nothing, the symptoms are aggravated by nothing. Associated signs and symptoms: The patient has no apparent associated signs or symptoms. Severity of symptoms: At their worst the symptoms were moderate, in the emergency department the symptoms are unchanged. The patient is sexually active, reportedly has a single partner. The patient has not experienced similar symptoms in the past. 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 - Social history:: Smoking status: Patient/guardian denies using tobacco. - Family history:: not pertinent. ROS: 07:00 Constitutional: Negative for fever, chills, and weight loss, Eyes: Negative for injury, diane pain, redness, and discharge, ENT: Negative for injury, pain, and discharge, Neck: Negative for injury, pain, and swelling, Cardiovascular: Negative for chest pain, palpitations, and edema, Respiratory: Negative for shortness of breath, cough, wheezing, and pleuritic chest pain, Abdomen/GI: Negative for abdominal pain, nausea, vomiting, diarrhea, and constipation, Back: Negative for injury and pain, MS/Extremity: Negative for injury and deformity, Skin: Negative for injury, rash, and discoloration, Neuro: Negative for headache, weakness, numbness, tingling, and seizure, Psych: Negative for depression, anxiety, suicide ideation, homicidal ideation, and hallucinations, Allergy/Immunology: Negative for hives, rash, and allergies, Endocrine: Negative for neck swelling, polydipsia, polyuria, polyphagia, and marked weight changes, Hematologic/Lymphatic: Negative for swollen nodes, abnormal bleeding, and unusual bruising. 07:00 : Positive for burning with urination, vaginal discharge, vaginal itching. 07:02 : Positive for of the perineum, right labia majora, left labia majora, right labia diane minora and left labia minora. Exam: 07:02 Constitutional: This is a well developed, well nourished patient who is awake, alert, diane and in no acute distress. Head/Face: Normocephalic, atraumatic. Eyes: Pupils equal round and reactive to light, extra-ocular motions intact. Lids and lashes normal. Conjunctiva and sclera are non-icteric and not injected. Cornea within normal limits. Periorbital areas with no swelling, redness, or edema. ENT: Nares patent. No nasal discharge, no septal abnormalities noted. Tympanic membranes are normal and external auditory canals are clear. Oropharynx with no redness, swelling, or masses, exudates, or evidence of obstruction, uvula midline. Mucous membranes moist. Neck: Trachea midline, no thyromegaly or masses palpated, and no cervical lymphadenopathy. Supple, full range of motion without nuchal rigidity, or vertebral point tenderness. No Meningismus. Chest/axilla: Normal chest wall appearance and motion. Nontender with no deformity. No lesions are appreciated. Cardiovascular: Regular rate and rhythm with a normal S1 and S2. No gallops, murmurs, or rubs. Normal PMI, no JVD. No pulse deficits. Respiratory: Lungs have equal breath sounds bilaterally, clear to auscultation and percussion. No rales, rhonchi or wheezes noted. No increased work of breathing, no retractions or nasal flaring. Abdomen/GI: Soft, non-tender, with normal bowel sounds. No distension or tympany. No guarding or rebound. No evidence of tenderness throughout. Back: No spinal tenderness. No costovertebral tenderness. Full range of motion. MS/ Extremity: Pulses equal, no cyanosis. Neurovascular intact. Full, normal range of motion. Neuro: Awake and alert, GCS 15, oriented to person, place, time, and situation. Cranial nerves II-XII grossly intact. Motor strength 5/5 in all extremities. Sensory grossly intact. Cerebellar exam normal. Normal gait. Psych: Awake, alert, with orientation to person, place and time. Behavior, mood, and affect are within normal limits. 07:02 : Pelvic Exam: External exam: erythema is noted, excoriation noted. Vital Signs: 06:11 BP 127 / 71; Pulse 85; Resp 18 S; Temp 98.3(O); Pulse Ox 100% on R/A; Weight 88 kg (R); as6 Height 5 ft. 5 in. (165.10 cm) (R); Pain 8/10; 07:35 BP 127 / 70; Pulse 82; Resp 16 S; Pulse Ox 100% on R/A; ha1 06:11 Body Mass Index 32.28 (88.00 kg, 165.10 cm) as6 MDM: 06:17 Patient medically screened. [facility] 07:04 Differential diagnosis: osman infection, cervicitis. Data reviewed: vital signs, [facility] nurses notes, lab test result(s), urinalysis. Data interpreted: facilities and grounds director: not applicable for this patient encounter. Pulse oximetry: on room air is 100 %. Counseling: I had a detailed discussion with the patient and/or guardian regarding: the historical points, exam findings, and any diagnostic results supporting the discharge/admit diagnosis, lab results, the need for outpatient follow up. 02/07 07:09 Order name: Glucose, Ancillary Testing [facility] 02/07 07:44 Order name: Urine --Ancillary (enter results) [facility] 02/07 07:45 Order name: Urine Dipstick-Ancillary [facility] 02/07 06:51 Order name: Blood Glucose Level; Complete Time: 06:56 [facility] 02/07 06:51 Order name: Urine Dipstick-Ancillary (obtain specimen); Complete Time: 07:10 [facility] 02/07 06:51 Order name: Urine Test (obtain specimen); Complete Time: 07:10 [facility] Administered Medications: 07:49 Drug: Rocephin (cefTRIAXone) 1 grams Route: IM; Site: right ventrogluteal; ha1 08:05 Follow up: Response: No adverse reaction ha1 07:49 Drug: Zithromax (azithromycin) 1 grams Route: PO; ha1 08:05 Follow up: Response: No adverse reaction ha1 07:49 Drug: metFORMIN 1000 mg Route: PO; ha1 08:05 Follow up: Response: No adverse reaction ha1 07:49 Drug: DiFLUcan (fluconazole) 200 mg Route: PO; ha1 08:05 Follow up: Response: No adverse reaction ha1 07:49 Drug: Flagyl (metroNIDAZOLE) 2 grams Route: PO; ha1 08:05 Follow up: Response: No adverse reaction ha1 07:51 Drug: Semglee Pen Injector 100 unit/mL 30 units {Note: glucose at 222.} Route: Sub-Q; ha1 Site: left upper abdomen; 08:05 Follow up: Response: No adverse reaction ha1 Disposition Summary: 02/07/22 07:07 Discharge Ordered Location: Home diane Problem: new diane Symptoms: have improved diane Condition: Stable diane Diagnosis - Subacute and chronic vaginitis diane - Vaginitis, vulvitis and vulvovaginitis in diseases classified elsewhere diane - Type 2 diabetes mellitus with hyperglycemia diane - Candidiasis of vulva and vagina diane Followup: diane - With: Private Physician - When: 2 - 3 days - Reason: Recheck today's complaints, Continuance of care, Re-evaluation by your physician Followup: diane - With: Blanca Jimenez MD - When: 2 - 3 days - Reason: Recheck today's complaints, Re-evaluation by your physician Discharge Instructions: - Discharge Summary Sheet diane - Type 2 Diabetes Mellitus, Diagnosis, Adult diane - Hyperglycemia [facility] - Vaginal Yeast Infection, Adult [facility] Forms: - Medication Reconciliation Form [facility] - Thank You Letter diane - Antibiotic Education diane - Prescription Opioid Use [facility] Prescriptions: - Glucotrol XL 5 mg Oral tablet extended release 24hr - take 1 tablet by ORAL route once daily with breakfast; 20 tablet; Refills: 0, [facility] Product Selection Permitted - Diflucan 150 mg Oral Tablet - take 1 tablet by ORAL route once daily for 5 days; 5 tablet; Refills: 0, [facility] Product Selection Permitted - Doxycycline Hyclate 100 mg Oral Tablet - take 1 tablet by ORAL route every 12 hours; 20 tablet; Refills: 0, Product [facility] Selection Permitted - Metformin 1,000 mg Oral Tablet - take 1 tablet by ORAL route every 12 hours with morning and evening meals; 40 diane tablet; Refills: 0, Product Selection Permitted Signatures: Dispatcher [employer] Otto Alves MD MD cha Slawson, Ashby, RN RN as6 Jenn Tran, RN RN ha1
[2022-02-07] MEDS ORDERED: INSULIN GLARGINE 100 UNIT/ML SQ ONE (07:26)
[2022-02-07] MEDS ORDERED: AZITHROMYCIN 250 MG TAB ONE (07:27)
[2022-02-07] MEDS ORDERED: FLUCONAZOLE 100 MG TAB ONE (07:27)
[2022-02-07] MEDS ORDERED: CEFTRIAXONE 1000 MG/VIAL ONE (07:28)
[2022-02-07] MEDS ORDERED: METFORMIN HCL 500 MG TAB ONE (07:28)
[2022-02-07] MEDS ORDERED: METRONIDAZOLE 500mg IVPB 0 MG/0 ML BAG IV ONE (07:29)
[2022-02-07] MEDS ORDERED: metroNIDAZOLE 500 MG TABLET ONE (07:30)
[2022-02-07] MEDS ORDERED: LIDOCAINE 1% MPF 2 ML AMPULE ONE (07:31)
[2022-02-07 07:45] LABS: Urine Blood Negative (Negative); Urine Glucose 2+ (Negative); Urine Protein Negative (Negative)
[2022-02-07 08:41] VITALS: TEMP 98.3; O2SAT 100
[2022-02-07 08:45] VITALS: BP 127/70
== END 2022-02-07 08:06 | disposition home or self-care (01) ==
LOC: ER 06:01
DX: N76.1 Subacute and chronic vaginitis (principal); B37.3 Candidiasis of vulva and vagina; E11.65 Type 2 diabetes mellitus with hyperglycemia
CPT/HCPCS: 81003; 81025; 82947; 96372; 99284

== ENCOUNTER → 2023-07-24 | Emergency (ER) | payer SELFPAY ==
[~2023-07-24] MED LIST: FAMOTIDINE 20 MG/2 ML VIAL IV ONE; MAGNES/ALUMIN/SIMET 30ML UCUP ONE; NS 0.9% VIAL 10 ML ONE; ONDANSETRON 4 MG/2 ML VIAL ONE
--- OUTSIDE RECORDS SUMMARY | 2023-07-24 13:36 | XMS REPORT | Continuity of Care Document ---
Author Name Unknown Address [address] [place] [address] [facility] thconnect Address [address] [facility] [place] [address] Care Team Providers Care Billiard Table Assembler Name Role Phone PCP, PATIENT DOES NOT HAVE A Primary Care Physic BOUCHRA [place] Attending Clinician Dez Marino MD, Bonita Brennan Attending Clinician [phone] Hema Jean-Baptiste MD Attending Clinician TANA SMITH Attending Clinician Unavailable Payers Payer Name Policy Type Policy Number Effective Date Expirati on Date Source MEDICAID ALIEN PENDING PENDING 2021 00:00:00 Allergies, Adverse Reactions, Alerts Allergy Name Allergy Type Status Severity Reaction(s) Onset Date Inactive Date Treating Clinician Comments Source PROMETHA ZINE [facility]GREDI Active Unknown-Cmnt 2016-0 10-09 00:00: 00 [facility] Encounters Start Date/Time End Date/Time Encounter Type Admission Type Attending Clinicians Care Facility Care Department Encounter ID Source 2021-05-04 11:53:02 Emergency [facility] [id number] [facility] 2021-05-04 05:49:40 Emergency [facility] [id number] [facility] 2021-05-03 03:43:41 Emergency [facility] [id number] [facility] 2021-05-01 11:24:45 Emergency [facility] [id number] [facility] 2021-05-01 07:34:38 Emergency [facility] [id number] [facility] 2022-06-10 08:15:00 2022-06-10 08:15:00 Outpatient R BOUCHRA MULLINS [facility] [id number] [facility] 2020-02-10 18:50:00 2020-02-10 23:45:00 Emergency Bonita Marino [facility] [id number] 2020-01-21 08:10:19 2020-01-21 11:57:00 Emergency Hema Jean-Baptiste [facility] [id number] 2019-06-04 20:45:32 2019-06-05 02:02:00 Emergency Carter NGTANA GASTON [facility] ERT [id number] [facility]
[2023-07-24 15:01] LABS: Absolute Lymphocytes (CBC) 0.8 K/uL (0.7-4.9); Hematocrit 41.2 % (36.0-45.0); Lymphocytes % 11.3 % (15.3-44.8); MCV 81.1 fL (80-100); MPV 7.9 fL (7.6-11.3); Platelets 347 thou/uL (152-406); RBC Red Blood Cell Count 5.08 M/uL (3.86-4.86)
[2023-07-24 15:06] LABS: Specific Gravity > 1.030 (1.005-1.030)
[2023-07-24 15:36] LABS: Albumin 3.5 g/dL (3.4-5.0); Bilirubin Total 0.7 mg/dL (0.2-1.0); Protein, Total 8.2 g/dL (6.4-8.2)
[2023-07-24 15:37] LABS: Potassium 4.3 mEq/L (3.5-5.1)
[2023-07-24 15:53] LABS: Blood Morphology Comment NOT SEEN (NOT SEEN); Platelet Estimate ADEQ; White Blood Cell Scan OK (OK)
--- NOTE | 2023-07-24 16:31 | RAD REPORT ---
EXAM DESCRIPTION: CTAbdomen Pelvis W Contrast - 07/24/2023 4:08 pm CLINICAL HISTORY: ABD PAIN COMPARISON: Abdomen Pelvis W Contrast dated 04/15/2021 TECHNIQUE: CT of the abdomen and pelvis was performed. All CT scans are performed using dose optimization technique as appropriate and may include automated exposure control or mA/KV adjustment according to patient size. FINDINGS: Lower chest: No acute abnormality. Liver: Hepatic steatosis. Mild intrahepatic biliary ductal dilatation. No focal mass. Biliary: Cholecystectomy. Mild extrahepatic biliary duct dilatation is likely related to the postchol ecystectomy state. Stomach: No significant focal abnormality. Duodenum: No significant focal abnormality. Pancreas: No significant abnormality. Spleen: No significant abnormality. Adrenal: No suspicious lesions. Kidney/ureter: No hydronephrosis. No renal calculi. Retroperitoneum: No retroperitoneal adenopathy. Vascular: No aneurysm. Bowel: Nonspecific fluid within the small bowel with segments of mild small bowel mesenteric edema. N ormal appendix .. Peritoneum: No ascites or free air. Small fat containing umbilical hernia. Bladder: Grossly unremarkable. Reproductive: No adnexal masses. Bones: No acute fracture. Other: n/a IMPRESSION: No definite acute findings. Possible mild gastroenteritis. Normal appendix.
--- NOTE | 2023-07-24 16:44 | ER ---
Nurse's Notes [facility] Name: Usha Romeo Age: 42 yrs Sex: Female : 1980 Arrival Date: 07/24/2023 Time: 13:33 Bed 15 Private MD: Diagnosis: Gastritis, unspecified;Nausea with vomiting, unspecified Presentation: 07/24 13:49 Chief complaint: Patient states: nausea and vomiting x 5 days, started off yellow now ko1 has small amt of dark red blood in it. Coronavirus screen: At this time, the client does not indicate any symptoms associated with coronavirus-19. Ebola Screen: No symptoms or risks identified at this time. Initial Sepsis Screen: Does the patient meet any 2 criteria? No. Patient's initial sepsis screen is negative. Does the patient have a suspected source of infection? No. Patient's initial sepsis screen is negative. Risk Assessment: Do you want to hurt yourself or someone else? Patient reports no desire to harm self or others. Onset of symptoms is unknown. 13:49 Method Of Arrival: Ambulatory ko1 13:49 Acuity: KEO 3 ko1 Triage Assessment: 13:51 General: Appears uncomfortable, Behavior is calm, cooperative, appropriate for age. ko1 Pain: Complains of pain in abdomen. GI: Reports diarrhea, nausea, vomiting. 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 - Social history:: Smoking status: Patient denies any tobacco usage or history of. - Family history:: not pertinent. - Hospitalizations: : No recent hospitalization is reported. Screenin:56 [facility] ED Fall Risk Assessment (Adult) History of falling in the last 3 months, cm10 including since admission No falls in past 3 months (0 pts) Confusion or Disorientation No (0 pts) Intoxicated or Sedated No (0 pts) Impaired Gait No (0 pts) Mobility Assist Device Used No (0 pt) Altered Elimination No (0 pt) Score/Fall Risk Level 0 - 2 = Low Risk Oriented to surroundings, Maintained a safe environment, Hourly rounding (assess needs \T\ fall precautionary measures) done. Abuse screen: Denies threats or abuse. Denies injuries from another. Nutritional screening: No deficits noted. Tuberculosis screening: No symptoms or risk factors identified. Assessment: 14:57 General: Appears in no apparent distress. uncomfortable, Behavior is calm, cooperative. cm10 Pain: Complains of pain in abdomen Pain does not radiate. Neuro: No deficits noted. Level of Consciousness is awake, alert, obeys commands, Oriented to person, place, time, situation. Cardiovascular: No deficits noted. Patient's skin is warm and dry. Respiratory: No deficits noted. Airway is patent Respiratory effort is even, unlabored, Respiratory pattern is regular, symmetrical. GI: Abdomen is obese, Bowel sounds Abd is soft Reports upper abdominal pain. : No deficits noted. No signs and/or symptoms were reported regarding the genitourinary system. EENT: No deficits noted. No signs and/or symptoms were reported regarding the EENT system. Derm: No deficits noted. No signs and/or symptoms reported regarding the dermatologic system. Skin is intact, Skin is pink, warm \T\ dry. Musculoskeletal: No deficits noted. Range of motion: intact in all extremities. 15:44 Reassessment: No changes from previously documented assessment. Patient and/or family tl4 updated on plan of care and expected duration. Pain level reassessed. Patient is alert, oriented x 3, equal unlabored respirations, skin warm/dry/pink. 16:30 Reassessment: Patient and/or family updated on plan of care and expected duration. Pain tl4 level reassessed. Patient is alert, oriented x 3, equal unlabored respirations, skin warm/dry/pink. Pt states she has increased pain in abdomen. Vital Signs: 13:49 BP 122 / 109; Pulse 99; Resp 15; Temp 97.2; Pulse Ox 99% ; ko1 15:00 BP 122 / 81; Pulse 89; Resp 21; Pulse Ox 100% on R/A; tl4 15:42 BP 113 / 76; Pulse 89; Resp 17; Pulse Ox 100% on R/A; tl4 16:31 BP 122 / 75; Pulse 89; Resp 16; Pulse Ox 99% on R/A; tl4 17:14 BP 111 / 72; Pulse 90; Resp 16; Pulse Ox 100% on R/A; Pain 5/10; tl4 17:14 Pain Scale: Adult tl4 [place] Coma Score: 17:14 Eye Response: spontaneous(4). Motor Response: obeys commands(6). Verbal Response: tl4 oriented(5). Total: 15. ED Course: 13:37 Patient arrived in ED. mg5 13:39 Richar Garcia MD is Attending Physician. rn 13:51 Triage completed. ko1 13:51 Arm band placed on right wrist. Patient placed in an exam room, on a stretcher, on ko1 school lunch monitor, on pulse oximetry, Patient notified of wait time. 13:58 LogdaMahin foreman is Primary Nurse. tl4 14:55 Test, Urine Sent. cm10 14:55 Troponin High Sensitivity Sent. cm10 14:56 CBC with Diff Sent. cm10 14:56 CMP Sent. cm10 14:56 Lipase Sent. cm10 14:56 Initial lab(s) drawn, by mo, sent to lab. Urine collected: clean catch specimen, EKG cm10 done, by ED staff, reviewed by Richar Garcia MD. Inserted saline lock: 20 gauge in right antecubital area, using aseptic technique. Blood collected. 14:59 Patient has correct armband on for positive identification. Placed in gown. Bed in low cm10 position. Call light in reach. Side rails up X2. Provided Education on: ER process and procedures. . 15:43 No provider procedures requiring assistance completed. tl4 16:10 CT Abd/Pelvis - IV Contrast Only In Process Unspecified. EDMS 17:15 IV discontinued, intact, bleeding controlled, No redness/swelling at site. Pressure tl4 dressing applied. Administered Medications: 14:56 Drug: Famotidine IVP 20 mg IVP once; dilute with 10 mL 0.9% NaCl; give over 2 minutes cm10 Route: IVP; Site: right antecubital; 17:07 Follow up: Response: No adverse reaction tl4 14:56 Not Given (Patient Refused): GI Cocktail without - (maaloxsuspension 30 ml, cm10 lidocaine mucous membrane liquid 2 % 15 ml) PO once 14:56 Drug: Ondansetron IVP 4 mg IVP once; over 2 minutes Route: IVP; Site: right antecubital;cm10 17:06 Follow up: Response: No adverse reaction tl4 Medication: 14:57 VIS not applicable for this client. cm10 Outcome: 16:43 Discharge ordered by . rn 17:15 Discharged to home ambulatory, with family, tl4 17:15 Condition: stable 17:15 Discharge instructions given to patient, family, Instructed on discharge instructions, follow up and referral plans. medication usage, Demonstrated understanding of instructions, follow-up care, medications, 17:17 Patient left the ED. tl4 Signatures: Dispatcher [employer] EDMS Richar Garcia MD MD rn Oliver, Kathy, RN RN Eboni Villar RN RN cm10 Jeanne Santiago mg5 Mahin Bui tl4
--- NOTE | 2023-07-24 16:44 | EDPHYS ---
Physician Documentation [facility] Name: Usha Romeo Age: 42 yrs Sex: Female : 1980 Arrival Date: 07/24/2023 Time: 13:33 Bed 15 Private MD: ED Physician Richar Garcia HPI: 07/24 14:29 This 42 yrs old Female presents to ER via Ambulatory with complaints of rn Abdominal Pain. 14:29 The patient presents with abdominal pain in the epigastric area. Onset: The rn symptoms/episode began/occurred last night. The symptoms do not radiate. Associated signs and symptoms: Pertinent positives: nausea, Pertinent negatives: blood in stools, chest pain, fever, shortness of breath, vomiting blood. The symptoms are described as crampy, sharp. Modifying factors: The symptoms are alleviated by nothing, the symptoms are aggravated by food. Severity of pain: At its worst the pain was moderate in the emergency department the pain is unchanged. The patient has experienced similar episodes in the past. The patient has not recently seen a physician. Patient reports epigastric pain that began last night after dinner. Has history of gastric ulcers but has never been scoped. Denies any hematemesis or blood in stool. Pain is now constant since this morning and not letting up. No fever.. No chest pain. 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 - Social history:: Smoking status: Patient denies any tobacco usage or history of. - Family history:: not pertinent. - Hospitalizations: : No recent hospitalization is reported. ROS: 14:32 Constitutional: Negative for fever, chills, and weight loss, Cardiovascular: Negative rn for chest pain, palpitations, and edema, Respiratory: Negative for shortness of breath, cough, wheezing, and pleuritic chest pain, Abdomen/GI: Positive for abdominal pain MS/Extremity: Negative for injury and deformity, Skin: Negative for injury, rash, and discoloration, Neuro: Negative for headache, weakness, numbness, tingling, and seizure, Exam: 14:32 Constitutional: This is a well developed, well nourished patient who is awake, alert, rn appears in pain and holding upper abdomen Head/Face: Normocephalic, atraumatic. Cardiovascular: Regular rate and rhythm. No pulse deficits. Respiratory: No increased work of breathing, no retractions or nasal flaring. Abdomen/GI: Soft, tender in the midepigastrium. No rebound Skin: Warm, dry MS/ Extremity: Pulses equal, no cyanosis Neuro: Awake and alert, GCS 15 16:58 ECG was reviewed by the Attending Physician. rn Vital Signs: 13:49 BP 122 / 109; Pulse 99; Resp 15; Temp 97.2; Pulse Ox 99% ; ko1 15:00 BP 122 / 81; Pulse 89; Resp 21; Pulse Ox 100% on R/A; tl4 15:42 BP 113 / 76; Pulse 89; Resp 17; Pulse Ox 100% on R/A; tl4 16:31 BP 122 / 75; Pulse 89; Resp 16; Pulse Ox 99% on R/A; tl4 17:14 BP 111 / 72; Pulse 90; Resp 16; Pulse Ox 100% on R/A; Pain 5/10; tl4 17:14 Pain Scale: Adult tl4 Tamie Coma Score: 17:14 Eye Response: spontaneous(4). Motor Response: obeys commands(6). Verbal Response: tl4 oriented(5). Total: 15. MDM: 13:39 Patient medically screened. rn 16:42 Differential diagnosis: diverticulitis, gastritis, gastroesophageal reflux disease, rn non-specific abd pain, pancreatitis, Peptic Ulcer Disease, Perf. Duodenal Ulcer, Perf. Gastric Ulcer. Data reviewed: vital signs, nurses notes, lab test result(s), radiologic studies, CT scan, and as a result, I will discharge patient. Counseling: I had a detailed discussion with the patient and/or guardian regarding the historical points, exam findings, and any diagnostic results supporting the discharge/admit diagnosis, lab results, radiology results, the need for outpatient follow up, to return to the emergency department if symptoms worsen or persist or if there are any questions or concerns that arise at home. Response to treatment: the patient's symptoms have mildly improved after treatment, and as a result, I will discharge patient. Special discussion: Based on the patient's Hx, exam, and Dx evaluation, there is no indication for emergent surgery or inpatient Tx. It is understood by the patient/guardian that if the Sx's persist or worsen they need to return immediately for re-evaluation. I discussed with the patient/guardian in detail that at this point there is no indication for admission to the hospital. It is understood, however, that if the symptoms persist or worsen the patient needs to return immediately for re-evaluation. Based on the history and exam findings, there is no indication for further emergent testing or inpatient evaluation. I discussed with the patient/guardian the need to see the electrocardiograph technician for further evaluation of the symptoms. 07/24 13:58 Order name: CBC with Diff; Complete Time: 16:00 ko1 07/24 13:58 Order name: CMP; Complete Time: 16:00 ko1 07/24 13:58 Order name: Lipase; Complete Time: 16:00 ko1 07/24 13:58 Order name: Troponin High Sensitivity; Complete Time: 16:00 ko1 07/24 14:12 Order name: Test, Urine; Complete Time: 16:00 rn 07/24 15:54 Order name: CBC Smear Scan; Complete Time: 16:00 EDMS 07/24 13:58 Order name: CT Abd/Pelvis - IV Contrast Only; Complete Time: 16:36 ko1 07/24 13:58 Order name: EKG; Complete Time: 13:59 ko1 07/24 13:58 Order name: IV Saline Lock; Complete Time: 14:55 ko1 07/24 13:58 Order name: Labs collected and sent; Complete Time: 14:55 ko1 07/24 13:58 Order name: EKG - Nurse/Tech; Complete Time: 14:55 ko1 EC:58 Rate is 98 beats/min. Rhythm is regular. QRS [place] is Normal. [place] interval is normal. QRS rn interval is normal. QT interval is normal. No Q waves. T waves are Normal. No ST changes noted. Clinical impression: Normal ECG. Interpreted by me. Reviewed by me. Administered Medications: 14:56 Drug: Famotidine IVP 20 mg IVP once; dilute with 10 mL 0.9% NaCl; give over 2 minutes cm10 Route: IVP; Site: right antecubital; 17:07 Follow up: Response: No adverse reaction tl4 14:56 Not Given (Patient Refused): GI Cocktail without - (maaloxsuspension 30 ml, cm10 lidocaine mucous membrane liquid 2 % 15 ml) PO once 14:56 Drug: Ondansetron IVP 4 mg IVP once; over 2 minutes Route: IVP; Site: right antecubital;cm10 17:06 Follow up: Response: No adverse reaction tl4 Disposition Summary: 07/24/23 16:43 Discharge Ordered Notes: Location: Home rn Problem: new rn Symptoms: have improved rn Condition: Stable rn Diagnosis - Gastritis, unspecified rn - Nausea with vomiting, unspecified rn Followup: rn - With: Private Physician - When: As needed - Reason: Recheck today's complaints, Re-evaluation by your physician Discharge Instructions: - Discharge Summary Sheet rn - Gastritis, Adult rn - Nausea and Vomiting, Adult rn Forms: - Medication Reconciliation Form rn - Thank You Letter rn - Antibiotic aircraft skin burnisher - Prescription Opioid Use rn - Patient Portal Instructions rn - Leadership Thank You Letter rn - Work release form eb Prescriptions: - ondansetron 4 mg Oral Tablet,disintegrating - take 1 tablet ORAL route every 8 hours As needed; 12 tablet; Refills: 0, rn Product Selection Permitted - Protonix 40 mg Oral Tablet - take 1 tablet ORAL route once daily; 30 tablet; Refills: 0, Product Selection rn Permitted - Metformin 500 mg Oral Tablet, Extended Release 24 hr - take 1 tablet ORAL route once daily with evening meal; 60 tablet; Refills: 0, rn Product Selection Permitted Signatures: Dispatcher [employer] Richar Hall MD MD rn Oliver, Kathy RN RN [email or web address] Eboni Nix RN RN cm10 Mahin Bui tl4
[2023-07-24 17:35] VITALS: TEMP 97.2
[2023-07-24 17:51] VITALS: BP 111/72; O2SAT 100
--- NOTE | 2023-07-25 16:53 | EKG ---
Test Date: 2023-07-24 Test Time: 14:41:41 Lead Php Developer: ARNULFO MEASUREMENT RESULTS: Intervals: Rate: 98 CT: 158 QRSD: 76 QT: 354 QTc: 451 [place]: P: 33 CT: 158 QRS: 56 T: 28 INTERPRETIVE STATEMENTS: Normal sinus rhythm Normal ECG No previous ECG available for comparison Electronically Signed On 07-25-23 16:51:25 DATA INTEGRITY SPECIALIST by Roberth Bernard
== END ==
LOC: ER 13:33
DX: K29.70 Gastritis, unspecified, without bleeding (principal)
CPT/HCPCS: 36415; 74177; 80053; 81025; 83690; 84484; 85025; 93005; 96374; 96375; 99284; A4216; J2405; Q9967

== ENCOUNTER 2023-10-05 17:29 | Emergency (ER) | payer SELFPAY ==
--- OUTSIDE RECORDS SUMMARY | 2023-10-05 17:32 | XMS REPORT | Continuity of Care Document ---
Author Name Unknown Address [address] [place] [address] [facility] thconnect Address [address] [place] [address] Care Team Providers Care Terminal Operator Name Role Phone Pcp, Patient Does Not Have A Primary Care Physic roney Doctor Unassigned, [place] Attending Clinician U BERENICE Thomas Attending Clinician UnavailBOUCHRA Sánchez Attending Clinician Dez Marino MD, Bonita Brennan Attending Clinician [phone] Hema Jean-Baptiste MD Attending Clinician [phone] TANA SMITH Attending Clinician Unavailable BERENICE PATINO Admitting Clinician Shawna treviño Paysever[employer] Payer Name Policy Type Policy Number Effective Date Expirati on Date Source MEDICAID ALI[place] PENDING PENDING 2021-01-04 00:00:00 Problems Condition Name Condition Details Condition Category Status Onset Date Resolution Date Last Treatment Date Treating Clinician Comments Source Encounter for contracept eriberto management , unspecifie d type Encounter for contracept eriberto management , unspecifie d type Disease Active 07-28 00:00: 00 [facility] Encounter for care after unplanned out of hospital delivery Encounter for care after unplanned out of hospital delivery Disease Active 2016-07 00:00: 00 [facility] History of gestationa l diabetes mellitus (GDM) History of gestationa l diabetes mellitus (GDM) Disease Active 2016-07 00:00: 00 [facility] Need for rubella vaccinatio n Need for rubella vaccinatio n Disease Active 2016-07 00:00: 00 [facility] Other depression Other depression Disease Active 2016-07 00:00: 00 [facility] Allergies, Adverse Reactions, Alerts Allergy Name Allergy Type Status Severity Reaction(s) Onset Date Inactive Date Treating Clinician Comments Source Prometha zine Hcl Propensi ty to adverse reaction s Active Unknown - See comments 10-09 00:00: 00 Akathisia [facility] PROMETHA ZINE HCL DRUG INGREDI Active Unknown-Cmnt 10-09 00:00: 00 [facility] Social History Social Habit Start Date Stop Date Quantity Comments Source Sexual orientation U [facility] Alcohol intake 2023-08-04 00:00:00 2023-08-04 00:00:00 0 /d [facility] History of Social function 2023-08-04 00:00:00 2023-08-04 00:00:00 [facility] Tobacco use and exposure 2015-10-20 00:00:00 2015-10-20 00:00:00 Smokeless tobacco non-user [facility] History of tobacco use 2015-10-15 00:00:00 Cigarette Smoker [facility] Tobacco Comment 2015-07-25 00:00:00 2015-07-25 00:00:00 smokes 1-2 x per day [facility] Sex Assigned At 1980 00:00:00 1980 00:00:00 [facility] Smoking Status Start Date Stop Date Source Ex-smoker 2015-10-20 00:00:00 2015-10-20 00:00:00 [facility] Medications Ordered Medication Name Filled Medication Name Start Date Stop Date Current Medication? Ordering Clinician Indication Dosage Frequency Signature (SIG) Comments Components Source cefTRIAXone (ROCEPHIN) 1,000 mg in NaCl 0.9% (NS) 100 mL MINI-BAG 08-05 02:45: 00 08-05 03:22 :00 No 1000mg 1,000 mg, IV Piggyback, ONCE, 1 dose, On [place] 08/04/23 at 2044, Administer over 30 Minutes, 100 mL
Reas on for Anti-Infec tive: Empiric Therapy for Suspected Infection< br>Empiric Therapy Site: Abdominal< br>Duratio n of therapy: Once (ED) [facility] ondansetron (ZOFRAN (PF)) injection 4 mg 08-05 01:15: 00 08-05 02:42 :00 No 4mg 4 mg, Slow IV Push, ONCE, 1 dose, [facility] [place] 08/04/23 [facility] 1914[facility] famot[facility] (PEPCID (PF[facility] 20 mg 08-05 01:15: 00 08-05 02:43 :00 No 20mg 20 mg, Slow IV Push, ONCE, 1 dose, On [place] 08/04/23 [facility] 1914[facility] maalox:diph enhydrAMINE :lidocaine 2 % viscous 1:1:1 ([facility]) oral suspension 15 mL 08-05 01:15: 00 08-05 02:41 :00 No 15mL 15 mL, Oral, ONCE, 1 dose, On [place] 08/04/23 at 1914, Routine [facility] sucralfate 1 gram tablet 08-04 00:00: 00 09-03 05:59 :00 Yes [id number] 1g Take 1 tablet by mouth before meals and at bedtime for 30 days. [facility] famotidine (PEPCID) 40 mg tablet 08-04 00:00: 00 09-03 05:59 :00 Yes [id number] 40mg Take 1 tablet by mouth daily for 30 days. [facility] cephALEXin 500 mg capsule 08-04 00:00: 00 08-15 05:59 :00 Yes [id number] 500mg Take 1 capsule by mouth 2 (two) times daily for 10 days. [facility] ondansetron 4 mg disintegrat ing tablet 08-04 00:00: 00 08-15 05:59 :00 Yes [id number] 4mg Take 1 tablet by mouth every 8 (eight) hours as needed for Nausea and Vomiting (N/V) for up to 10 days. [facility] naproxen 500 mg tablet 01-04 00:00: 00 Yes [id number] 500mg Take 1 tablet by mouth 2 (two) times daily with meals. [facility] metFORMIN 500 mg tablet 09-05 00:00: 00 Yes [id number] 500mg Take 1 tablet by mouth 2 (two) times daily. [facility] cephALEXin (KEFLEX) 500 mg capsule 09-05 00:00: 00 08-04 00:00 :00 No [id number] 500mg Take 1 capsule by mouth 3 (three) times daily. [facility] omeprazole 40 mg capsule 809 00:00: 00 Yes [id number] 40mg Take 1 capsule by mouth daily. [facility] Immunizations Ordered Immunization Name Filled Immunization Name Date Status Comments Source Influenza Virus Vaccine Unknown Completed [facility] TDAP Unknown Completed [facility] Rubella Unknown Completed [facility] Influenza Virus Vaccine Quad IM 3+ YRS Unknown Completed [facility] TDAP Unknown Completed [facility] TDAP Unknown Completed [facility] Influenza Virus Vaccine Unknown Completed [facility] TDAP Unknown Completed [facility] Rubella Unknown Completed [facility] Influenza Virus Vaccine Quad IM 3+ YRS Unknown Completed [facility] TDAP Unknown Completed [facility] TDAP Unknown Completed [facility] Vital Signs Vital Name Observation Time Observation Value Comments S ource Systolic blood pressure 2023-08-05 03:59:00 120 mm[Hg] [facility] Diastolic blood pressure 2023-08-05 03:59:00 73 mm[Hg] [facility] Heart rate 2023-08-05 03:59:00 67 /min [facility] Respiratory rate 2023-08-05 03:59:00 18 /min [facility] Oxygen saturation in Arterial blood by Pulse oximetry 2023-08-05 03:59:00 99 /min [place] [facility] Body temperature 2023-08-05 00:47:00 36.72 Janiya [facility] Procedures Procedure Date / Time Performed Performing Clinician Source XR CHEST 1 VW 2023-08-05 02:59:00 Berenice Patino [facility] ACUTE CARE VENOUS BLOOD GAS 2023-08-05 02:02:00 Berenice Patino [facility] LIPASE 2023-08-05 02:01:00 Berneice Patino Un [facility] BETA HYDROXY-BUTYRATE 2023-08-05 02:01:00 Berenice Patino [facility] TROPONIN I 2023-08-05 02:01:00 Berenice Patino [facility] COMP. METABOLIC PANEL (70958) 2023-08-05 02:01:00 Berenice Patino [facility] CBC WITH DIFF 2023-08-05 02:01:00 Berenice Patino [facility] GLYCOSYLATED HEMOGLOBIN (A1C) 2023-08-05 02:01:00 Berenice Patino [facility] URINALYSIS 2023-08-05 02:01:00 Berenice Patino [facility] CONSENT/REFUSAL FOR DIAGNOSIS AND TREATMENT 2023-08-05 00:39:40 Doctor Unassigned, [place] [facility] Encounters Start Date/Time End Date/Time Encounter Type Admission Type Attending Clinicians Care Facility Care Department Encounter ID Source 2021-05-04 11:53:02 Emergency [facility] [id number] [facility] 2021-05-04 05:49:40 Emergency [facility] [id number] [facility] 2021-05-03 03:43:41 Emergency [facility] [id number] [facility] 2021-05-01 11:24:45 Emergency [facility] [id number] [facility] 2021-05-01 07:34:38 Emergency [facility] [id number] [facility] 2023-08-08 00:00:00 2023-08-08 00:00:00 Patient Secure Msg Doctor Unassigned, [place] [facility] [id number] 4.2.7.2.686 [id number] [facility] 2023-08-04 18:47:00 2023-08-04 22:35:00 Emergency X BERENICE PATINO [facility] ERT [id number] [facility] 2023-08-04 18:47:00 2023-08-04 22:35:00 Emergency Berenice [facility] 1.2.840.114 350.1.13.10 4.2.7.2.686 [id number] [facility] 2022-06-10 08:15:00 2022-06-10 08:15:00 Outpatient BOUCHRA DAMON [facility] [id number] [facility] 2020-02-10 18:50:00 2020-02-10 23:45:00 Emergency Bonita Marino [facility] [id number] 350.1.13.10 4.2.7.2.686 [id number] 2020-01-21 08:10:19 2020-01-21 11:57:00 Emergency Hema Jean-Baptiste [facility] 1.2.840.114 350.1.13.10 4.2.7.2.686 [id number] 2019-06-04 20:45:32 2019-06-05 02:02:00 Emergency X TANA SMITH [facility] ERT [id number] [facility] Results Test Description Test Time Test Comments Results Resul t Comments Source XR CHEST 1 VW 2024-02-0 2 03:18:47 EXAM: XR CHEST 1 VW 08/04/2023 8:54 PM HISTORY: 42 years old Female with chest pain TECHNIQUE: Portable AP view of the chest. COMPARISON: 01/04/2021 FINDINGS: Lines/tubes and devices: None. Lungs and pleura: The lungs are clear. No focal consolidation,pneumot horax, or pleural effusion is seen. Cardiomediastinal: The cardiomediastinal silhouette is normal accountingfor technique. Musculoskeletal: No acute osseous abnormality. [facility] Notes Date/Time Note Provider Source 2023-08-04 22:34:43 5dhnJudjK7js15y0qibEID9i9lDRarPiw MlPPlsyvD5KTBMVv3+WIHpmcKwetis416 27-08-00T22:34:43 Pt ao4 verbalized understanding of discharge. Pt not endorsing any current ailments, concerns or distress. Pt resp e/u on RA. IV removed and secured. Pt walked off unit w papers and belongings w/o incident. Discharge complete. 92095-3Cjdrckqwh department XnuwUI2880-96-34V36:35:29Emergenc y department NoteTXT1.2.840.103377.1.13.104.2. 7.2.431301|[id number] for patient sxxx01007-5SkjaTMBJBPPNTSBRfdnbed ed C-CDA narrative [id number] Seals RN[address] Pc[id number] 067LBSJUDUIPTWMZKFJMLQJMH2930-24- 01T22:35:291.2.840.400005.1.72.3. 15|1.2.840.558416.1.13.104.2.7.2. [id number] Linda Seals RN [facility] 2023-08-04 21:57:16 toeHDBY9DFwid65gPc/VkCD95StlLblp1 X0BTCcQlkUVm1n/F8ppg4z5eI0o4iGI44 27-08-00T21:57:16 Provider bedside 61172-7Aordbjjkz department GckqDV9310-18-66L38:57:24[facility] NoteTXT1.2.840.565685.1.13.104.2. 7.2.456743|[id number] for patient shnu42092-6VrhkNQLGVWKBNNBXruspiq ed C-CDA narrative text[address] QudvMdrtirfupBpnuxaggrCWSX5772030 958KECVGODGAKUHAJZZNVIOKV8480-56- 01T21:57:241.2.840.877379.1.72.3. 15|1.2.840.883584.1.13.104.2.7.2. [id number] [facility] 2023-08-04 21:43:48 re9Gtkl6U9zuTuUdxvbRkxZTTplnRl7f1 pR++Fur8sGkNlK/VIQ6qK3fpDXkOcVl72 27-08-00T21:43:48 Pt ao4 presents c/o abdominal pain x 2 days w N/V. Pt denied any dysuria or hematuria. Pt endorses nausea and dizziness that started 2 days ago. Pt denied any CP, SOB, MAIN. Resp e/u on RA. No distress noted or declared. Pt remains on VS monitoring. Call light in reach, bed locked and lowered. Will cont to assess and tx per plan of care. 66591-4Ibsdyvrye department TnauJR5560-49-12X25:55:17[facility] NoteTXT1.2.840.313932.1.13.104.2. 7.2.586945|[id number] for patient jaqc28990-7WcmhUDVUQYQUYSIGfmehnu ed C-CDA narrative text[address]TX[address] 411WBORQEFOBXPYENEAJETEUI2178-58- 01T21:55:171.2.840.108686.1.72.3. 15|1.2.840.564595.1.13.104.2.7.2. [id number] [facility] 2023-08-04 18:45:41 vjVar/rL46UIkrRqS2XjE0uFuQKP2gUpv hCg+Ey52453U8B2bf/aaZfBeHVv/tPK20 27-08-00T18:45:41 Markie Romeo is a 42 year old female reports to the ED c/o RUQ abdominal pain. Reports one episode of vomiting dark red blood last week and another this morning. Denies diarrhea. Hx of NIDDM. Respirations even and unlabored, NAD noted 80215-1Cwbcifxnn department Triage kdpvOM5049-44-07P85:47:25[facility] Triage noteTXT1.2.840.276677.1.13.104.2. 7.2.202309|[id number] for patient raxl81943-7Jmigbpyfe department NoteLNNARRATIVEFormatted C-CDA narrative [id number] R Cox RNUT[address]TXTX[address] 747KTQXZQMNHAZYSGXZAALEFL4899-98- 01T18:47:251.2.840.144908.1.72.3. 15|1.2.840.649651.1.13.104.2.7.2. [id number] Sevtlana Dewitt RN [facility]"
[2023-10-05] MEDS ORDERED: NA CHLORIDE 0.9% 1,000 ML ONE (18:45)
[2023-10-05] MEDS ORDERED: KETOROLAC 30 MG/ML INJ ONE (18:45)
[2023-10-05] MEDS ORDERED: ONDANSETRON 4 MG/2 ML VIAL ONE (18:47)
[2023-10-05 19:01] LABS: Specific Gravity 1.049 (1.005-1.030); Specific Gravity > 1.030 (1.005-1.030); Urine Bilirubin NEGATIVE (Negative); Urine Blood Negative (Negative); Urine Clarity Clear (Clear); Urine Color Light-Yellow (Yellow); Urine Glucose 4+ (Over) (Negative); Urine Ketones NEGATIVE (Negative); Urine Microscopic Reflex YN NO UMIC; Urine Nitrite NEGATIVE (Negative); Urine Protein NEGATIVE (Negative); Urine Urobilinogen Normal (Normal); Urine pH 6.5 (5.0-7.0)
[2023-10-05 19:29] LABS: Absolute Basophils 0.1 K/uL (0-0.5); Absolute Monocytes 0.4 K/uL (0.1-1.3); Basophils % 0.9 % (0-1.3); Eosinophils % 0.7 % (0-4.4); Hematocrit 35.6 % (36.0-45.0); Hemoglobin 11.7 g/dL (12.0-15.0); Lymphocytes % 31.1 % (15.3-44.8); MCH 26.7 pg (27.0-35.0); MCV 81.1 fL (80-100); MPV 7.6 fL (7.6-11.3); Monocytes % 5.9 % (3.3-12.3); Neutrophils % 61.4 % (41.7-73.7); Nucleated Red Blood Cells % 0.1 % (0-0); Platelets 370 thou/uL (152-406); RBC Red Blood Cell Count 4.39 M/uL (3.86-4.86); Red Cell Distribution Width 14.3 % (12.1-15.2)
[2023-10-05 19:52] LABS: Albumin 3.1 g/dL (3.4-5.0); Albumin/Globulin Ratio 0.8 (1.1-1.8); Anion Gap 8.7 mEq/L (5.0-15.0); Bilirubin Total 0.3 mg/dL (0.2-1.0); Globulin 3.9 g/dL (2.3-3.5); Potassium 3.7 mEq/L (3.5-5.1)
--- NOTE | 2023-10-05 20:04 | EDPHYS ---
Physician Documentation [facility] Name: Usha Romeo Age: 42 yrs Sex: Female : 1980 Arrival Date: 10/05/2023 Time: 17:29 Bed 7 Private MD: ED Physician Otto Sampson HPI: 10/04 20:29 This 42 yrs old Female presents to ER via Ambulatory with complaints of kb Abdominal Pain, Diarrhea. 20:29 Pt is a 42 year old female who presents for lower abd pain, n/v/d that started today. kb Son has similar symptoms. Denies fever. . Historical: - Allergies: 17:48 No Known Allergies; mb9 - Home Meds: 17:48 None [Active]; mb9 - PMHx: 17:48 Anemia; diabetes mellitus; kidney infection; Ulcers; mb9 - PSHx: 17:48 Cholecystectomy; mb9 - Immunization history:: Adult Immunizations up to date. - Infectious Disease History:: Denies. - Social history:: Smoking status: Patient denies any tobacco usage or history of. ROS: 20:29 Constitutional: As per HPI kb Exam: 20:29 Constitutional: This is a well developed, well nourished patient who is awake, alert, kb and in no acute distress. Head/Face: Normocephalic, atraumatic. ENT: Moist Mucous membranes Cardiovascular: Regular rate Respiratory: Respirations even and unlabored. No increased work of breathing. Talking in full sentences Skin: Warm, dry with normal turgor. Normal color. MS/ Extremity: Pulses equal, no cyanosis. Neurovascular intact. Full, normal range of motion. Neuro: Awake and alert, GCS 15, oriented to person, place, time, and situation. Moves all extremities. Normal gait. 20:29 Abdomen/GI: Inspection: abdomen appears normal, Bowel sounds: normal, Palpation: soft, in all quadrants, mild abdominal tenderness, in the suprapubic area, Vital Signs: 17:47 BP 128 / 89; Pulse 90; Resp 18; Temp 98.4(O); Pulse Ox 98% on R/A; Weight 72.57 kg; mb9 Height 5 ft. 2 in. ; 18:49 BP 129 / 72 RA Supine (auto/reg); Pulse 86 MON; Resp 13 S; Temp 97.3(TE); Pulse Ox 98% jg11 on R/A; 19:45 BP 126 / 56; Pulse 71; Resp 16; Pulse Ox 99% on R/A; jb4 17:47 Body Mass Index 29.26 (72.57 kg, 157.48 cm) mb9 MDM: 17:40 Patient medically screened. kb 20:29 Differential diagnosis: non-specific abd pain, urinary tract infection, kb gastroenteritis. Data reviewed: vital signs, nurses notes. Care significantly affected by the following chronic conditions: Diabetes. Counseling: I had a detailed discussion with the patient and/or guardian regarding the historical points, exam findings, and any diagnostic results supporting the discharge/admit diagnosis, lab results, radiology results, the need for outpatient follow up, a family practitioner, to return to the emergency department if symptoms worsen or persist or if there are any questions or concerns that arise at home. ED course: Pt reports she has been out of metformin for a while, normally takes 1000mg BID. 10/04 17:51 Order name: CBC with Diff; Complete Time: 19:32 kb 10/04 17:51 Order name: CMP; Complete Time: 20:03 kb 10/04 17:51 Order name: Lipase; Complete Time: 20:03 kb 10/04 17:51 Order name: Test, Urine; Complete Time: 19:01 kb 10/04 17:51 Order name: Urinalysis w/ reflexes; Complete Time: 19:10 kb 10/04 17:51 Order name: IV Saline Lock; Complete Time: 19:01 kb 10/04 17:51 Order name: Labs collected and sent; Complete Time: 19:01 kb 10/04 19:05 Order name: Misc. Order: RECOLLECT LAVENDER AND GREEN TOP; Complete Time: 19:57 rv1 Administered Medications: 18:40 Drug: NS 0.9% IV 1000 ml IV at 1 bolus Per protocol; 1000 mL bolus Route: IV; Rate: 1 rs5 bolus; Site: left antecubital; 18:40 Drug: TORadol - Ketorolac IVP 15 mg IVP once Route: IVP; Site: left antecubital; rs5 18:40 Drug: Ondansetron IVP 4 mg IVP once; over 2 minutes Route: IVP; Site: left antecubital; rs5 Disposition Summary: 10/05/23 20:03 Discharge Ordered Notes: Location: Home kb Condition: Stable kb Diagnosis - Lower abdominal pain, unspecified kb - Hyperglycemia, unspecified kb - Diarrhea, unspecified kb Followup: kb - With: Emergency Department - When: As needed - Reason: Worsening of condition Followup: kb - With: Private Physician - When: 2 - 3 days - Reason: Recheck today's complaints, Continuance of care, Re-evaluation by your physician Discharge Instructions: - Discharge Summary Sheet kb - Abdominal Pain, Adult, Lbgy-ky-Ezlj kb - Diarrhea, Adult, Bati-yd-Mtjt kb - Hyperglycemia, Tpsz-xi-Spll kb Forms: - Medication Reconciliation Form kb - Thank You Letter kb - Antibiotic Education kb - Prescription Opioid Use kb - Patient Portal Instructions kb - Leadership Thank You Letter kb Prescriptions: - Metformin 1,000 mg Oral Tablet - take 1 tablet ORAL route every 12 hours with morning and evening meals; 20 kb tablet; Refills: 0, Product Selection Permitted Signatures: Dispatcher [employer] EDME Kierra Yeh, TANK MAKER WO[employer]-C TANK MAKER WOOD-Lizzy uY, RN RN mb9 Alyssa Moreno rv1 Jamar Hsieh RN RN rs5 Corrections: (The following items were deleted from the chart) 17:49 17:48 Home Meds: None; dustin mb9 17:51 17:51 CBC+H.LAB.BRZ ordered. EDMS EDMS 17:51 17:51 COMPREHENSIVE METABOLIC PANEL+C.LAB.BRZ ordered. EDMS EDMS 17:51 17:51 LIPASE+C.LAB.BRZ ordered. EDMS EDMS 17:51 17:51 Test, Urine+UC.LAB.BRZ ordered. EDMS EDMS 17:51 17:51 Urinalysis+U.LAB.BRZ ordered. EDME EDMS
--- NOTE | 2023-10-05 20:04 | ER ---
Nurse's Notes [facility] Name: Usha Romeo Age: 42 yrs Sex: Female : 1980 Arrival Date: 10/05/2023 Time: 17:29 Bed 7 Private MD: Diagnosis: Lower abdominal pain, unspecified;Hyperglycemia, unspecified;Diarrhea, unspecified Presentation: 10/04 17:47 Chief complaint: Patient states: "I've had lower abdominal pain, N/V that started this mb9 afternoon.". Coronavirus screen: Vaccine status: Patient reports being unvaccinated. Ebola Screen: No symptoms or risks identified at this time. Initial Sepsis Screen: Does the patient meet any 2 criteria? No. Patient's initial sepsis screen is negative. Does the patient have a suspected source of infection? No. Patient's initial sepsis screen is negative. Risk Assessment: Do you want to hurt yourself or someone else? Patient reports no desire to harm self or others. Onset of symptoms was October 05, 2023. 17:47 Acuity: KEO 3 mb9 17:47 Method Of Arrival: Ambulatory mb9 Triage Assessment: 17:49 General: Appears in no apparent distress. Behavior is calm, cooperative. Pain: mb9 Complains of pain in abdomen. EENT: No signs and/or symptoms were reported regarding the EENT system. Neuro: Level of Consciousness is awake, alert, obeys commands, Oriented to person, place, time, situation, Appropriate for age. Cardiovascular: Patient's skin is warm and dry. Respiratory: Airway is patent Respiratory effort is even, unlabored, Respiratory pattern is regular, agonal. GI: Reports lower abdominal pain, diarrhea, nausea. : No signs and/or symptoms were reported regarding the genitourinary system. Derm: Skin is pink, warm \\T\\ dry. Musculoskeletal: Range of motion: intact in all extremities. Historical: - Allergies: 17:48 No Known Allergies; mb9 - Home Meds: 17:48 None [Active]; mb9 - PMHx: 17:48 Anemia; diabetes mellitus; kidney infection; Ulcers; mb9 - PSHx: 17:48 Cholecystectomy; mb9 - Immunization history:: Adult Immunizations up to date. - Infectious Disease History:: Denies. - Social history:: Smoking status: Patient denies any tobacco usage or history of. Screenin:46 [facility] ED Fall Risk Assessment (Adult) History of falling in the last 3 months, rs5 including since admission No falls in past 3 months (0 pts) Confusion or Disorientation No (0 pts) Intoxicated or Sedated No (0 pts) Impaired Gait No (0 pts) Mobility Assist Device Used No (0 pt) Altered Elimination No (0 pt) Score/Fall Risk Level 0 - 2 = Low Risk Oriented to surroundings, Maintained a safe environment. Abuse screen: Denies threats or abuse. Nutritional screening: No deficits noted. Tuberculosis screening: No symptoms or risk factors identified. Assessment: 18:36 Reassessment: Pt arrived in room. rs5 18:36 General: Appears in no apparent distress. uncomfortable, Behavior is calm, cooperative. rs5 Pain: Complains of pain in lower abdomen Pain currently is 6 out of 10 on a pain scale. Quality of pain is described as aching, Is continuous. Neuro: Level of Consciousness is awake, alert, obeys commands, Oriented to person, place, time, situation. Cardiovascular: Patient's skin is warm and dry. Rhythm is regular. Respiratory: Airway is patent Respiratory effort is even, unlabored, Respiratory pattern is regular, symmetrical. 18:36 GI: Abdomen is round non-distended, Bowel sounds present X 4 quads. Abd is soft and non rs5 tender. GI: Reports diarrhea, nausea. : No signs and/or symptoms were reported regarding the genitourinary system. EENT: No signs and/or symptoms were reported regarding the EENT system. Derm: Skin is intact, Skin is dry, Skin is normal, Skin temperature is warm. Musculoskeletal: Range of motion: intact in all extremities. 19:00 Reassessment: Patient appears in no apparent distress at this time. Patient and/or jb4 family updated on plan of care and expected duration. Pain level reassessed. Patient is alert, oriented x 3, equal unlabored respirations, skin warm/dry/pink. 20:22 Reassessment: Patient appears in no apparent distress at this time. Patient and/or jb4 family updated on plan of care and expected duration. Pain level reassessed. Patient is alert, oriented x 3, equal unlabored respirations, skin warm/dry/pink. Patient states feeling better. Vital Signs: 17:47 BP 128 / 89; Pulse 90; Resp 18; Temp 98.4(O); Pulse Ox 98% on R/A; Weight 72.57 kg; mb9 Height 5 ft. 2 in. ; 18:49 BP 129 / 72 RA Supine (auto/reg); Pulse 86 MON; Resp 13 S; Temp 97.3(TE); Pulse Ox 98% jg11 on R/A; 19:45 BP 126 / 56; Pulse 71; Resp 16; Pulse Ox 99% on R/A; jb4 17:47 Body Mass Index 29.26 (72.57 kg, 157.48 cm) mb9 ED Course: 17:37 Patient arrived in ED. mg5 17:40 [facility]C [facility]. kb 17:40 Otto Sampson MD is Attending Physician. kb 17:46 Arm band placed on. mb9 17:48 Triage completed. mb9 18:46 Patient has correct armband on for positive identification. Placed in gown. Bed in low rs5 position. Call light in reach. Side rails up X 1. 18:49 Initial lab(s) drawn, by ED staff, sent to lab. Urine collected: clean catch specimen, jg11 clear. Missed attempt(s): 22 gauge Bleeding controlled, band aid applied, catheter tip intact. 18:50 Missed attempt(s): 22 gauge Bleeding controlled, band aid applied, catheter tip intact. jg11 18:50 Inserted saline lock: 22 gauge in left antecubital area, using aseptic technique. Blood jg11 collected. 19:12 No provider procedures requiring assistance completed. rs5 19:58 Harley Warner, RN is Primary Nurse. jb4 20:22 Provided Education on: Local clinics and health care providers pt can see.. jb4 20:22 IV discontinued, intact, bleeding controlled, No redness/swelling at site. Pressure jb4 dressing applied. Administered Medications: 18:40 Drug: NS 0.9% IV 1000 ml IV at 1 bolus Per protocol; 1000 mL bolus Route: IV; Rate: 1 rs5 bolus; Site: left antecubital; 18:40 Drug: TORadol - Ketorolac IVP 15 mg IVP once Route: IVP; Site: left antecubital; rs5 18:40 Drug: Ondansetron IVP 4 mg IVP once; over 2 minutes Route: IVP; Site: left antecubital; rs5 Medication: 19:12 VIS not applicable for this client. rs5 Outcome: 20:03 Discharge ordered by . [place] 20:22 Discharged to home ambulatory, with family, jb4 20:22 Condition: stable 20:22 Discharge instructions given to patient, Instructed on discharge instructions, follow up and referral plans. medication usage, Demonstrated understanding of instructions, follow-up care, medications, Prescriptions given X 1, 20:23 Patient left the ED. jb4 Signatures: Kierra Yeh, LOSS PREVENTION SUPERVISOR-C LOSS PREVENTION SUPERVISOR-CkHarley Jovel RN RN jb4 Lizzy Singh RN RN mb9 Jamar Hsieh RN RN rs5 Jeanne Santiago5 John Romeo jg11 Corrections: (The following items were deleted from the chart) 17:49 17:48 Home Meds: None; mb9 mb9
[2023-10-05 20:57] VITALS: BP 126/56; TEMP 97.3; O2SAT 99
== END 2023-10-05 20:23 | disposition home or self-care (01) ==
LOC: ER 17:29
DX: R19.7 Diarrhea, unspecified (principal); E11.65 Type 2 diabetes mellitus with hyperglycemia
CPT/HCPCS: 36415; 80053; 81003; 81025; 83690; 85025; J2405; J7030

== ENCOUNTER 2024-06-01 14:38 | Emergency (ER) | payer SELFPAY ==
--- OUTSIDE RECORDS SUMMARY | 2024-06-01 14:42 | XMS REPORT | Continuity of Care Document ---
Author Name Unknown Address [address] [place] [address] [facility] thconnect Address [address] [place] [address] Care Team Providers Care Plexiglas Former Name Role Phone PCP, PATIENT DOES NOT HAVE A Primary Care Physic roney Unavailable NANCIE BANDA Attending Clinician Unavailable NANCIE BANDA Attending Clinician Unavailable Nancie Banda CNP Attending Clinician [phone] Doctor Unassigned, [place] Attending Clinician U navailable BERENICE PATINO Attending Clinician Unavailab BOUCHRA Barclay Attending Clinician Unavailnatasha Marino MD, Bonita Brennan Attending Clinician [phone] Hema Jean-Baptiste MD Attending Clinician [phone] TANA SMITH Attending Clinician Unavailable NANCIE BANDA Admitting Clinician Unavailable BERENICE PATINO Admitting Clinician Unavailab treviño Payers Payer Name Policy Type Policy Number Effective Date Expirati on Date Source MEDICAID ALIEN PENDING PENDING 2021 00:00:00 Problems Condition Name Condition Details Condition Category Status Onset Date Resolution Date Last Treatment Date Treating Clinician Comments Source Encounter for contracept eriberto management , unspecifie d type Encounter for contracept eriberto management , unspecifie d type Disease Active 07-28 00:00: 00 [facility] Encounter for care after unplanned out of hospital delivery Encounter for care after unplanned out of hospital delivery Disease Active 2016-07 00:00: 00 [facility] History of gestationa l diabetes mellitus (GDM) History of gestationa l diabetes mellitus (GDM) Disease Active 2016-07 00:00: 00 [facility] Need for rubella vaccinatio n Need for rubella vaccinatio n Disease Active 2016-07 00:00: 00 [facility] Other depression Other depression Disease Active 2016-07 00:00: 00 [facility] Diabetes Diabetes Disease Resolve d 01-10 00:00: 00 2017-04-08 00:00:00 2017-04-08 16:33:15 [facility] Anemia complicati ng Anemia complicati ng Disease Resolve d 01-10 00:00: 00 2017-04-08 00:00:00 2017-04-08 16:33:16 [facility] anomaly anomaly Disease Resolve d 01-10 00:00: 00 2017-04-08 00:00:00 2017-04-08 16:33:16 [facility] Polyhydram nios Polyhydram nios Disease Resolve d 01-10 00:00: 00 2017-04-08 00:00:00 2017-04-08 16:33:17 [facility] Morbid obesity with body mass index of 40.0-49.9 Morbid obesity with body mass index of 40.0-49.9 Disease Resolve d 10-09 00:00: 00 2017-04-08 00:00:00 2017-04-08 16:33:12 [facility] Morbid obesity with body mass index of 50 or higher Morbid obesity with body mass index of 50 or higher Disease Resolve d 10-09 00:00: 00 2017-04-08 00:00:00 2017-04-08 16:33:08 [facility] Susceptibl e to varicella (non-immun e), currently Susceptibl e to varicella (non-immun e), currently Disease Resolve d 10-07 00:00: 00 2017-04-08 00:00:00 2017-04-08 16:33:05 [facility] Rubella non-immune status, antepartum Rubella non-immune status, antepartum Disease Resolve d 10-07 00:00: 00 2017-04-08 00:00:00 2017-04-08 16:46:19 [facility] Supervisio n of high risk , antepartum Supervisio n of high risk , antepartum Disease Resolve d 10-06 00:00: 00 2017-04-08 00:00:00 2017-04-08 16:33:00 [facility] AMA (advanced maternal age) multigravi da 35+ AMA (advanced maternal age) multigravi da 35+ Disease Resolve d 10-06 00:00: 00 2017-04-08 00:00:00 2017-04-08 16:33:01 [facility] Multiparit y Multiparit y Disease Resolve d 10-06 00:00: 00 2017-04-08 00:00:00 2017-04-08 16:33:02 [facility] Flu vaccine need Flu vaccine need Disease Resolve d 10-06 00:00: 00 2017-04-08 00:00:00 2022-01-17 00:45:06 [facility] Nausea and vomiting during prior to 22 weeks gestation Nausea and vomiting during prior to 22 weeks gestation Disease Resolve d 10-06 00:00: 00 2017-04-08 00:00:00 2017-04-08 16:33:03 [facility] History of oligohydra mnios in prior , currently History of oligohydra mnios in prior , currently Disease Resolve d 2015-07 00:00: 00 2017-04-08 00:00:00 2017-04-08 16:33:00 [facility] 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, 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, antepartum Disease Resolve d 02-01 00:00: 00 2017-04-08 00:00:00 2022-01-17 00:41:37 [facility] Obesity complicati ng Obesity complicati ng Disease Resolve d 4-18 00:00: 00 2017-04-08 00:00:00 2017-04-08 16:32:59 [facility] Diabetes mellitus complicati ng , antepartum Diabetes mellitus complicati ng , antepartum Disease Resolve d -18 00:00: 2017-04-08 00:00:00 2022-01-17 00:40:15 [facility] Routine follow-up Routine follow-up Disease Resolve d 2015-07 00:00: 00 2016-10-06 00:00:00 2016-10-06 15:26:29 [facility] Diabetes mellitus complicati ng , antepartum , third trimester Diabetes mellitus complicati ng , antepartum , third trimester Disease Resolve d 2015-0705 00:00: 00 2016-10-06 00:00:00 2016-10-06 15:27:49 [facility] Obesity complicati ng , third trimester Obesity complicati ng , third trimester Disease Resolve d 2015-0705 00:00: 00 2016-10-06 00:00:00 2016-10-06 15:27:36 [facility] Maternal varicella, non-immune Maternal varicella, non-immune Disease Resolve d 2015-07 0-21 00:00: 00 2016-10-06 00:00:00 2016-10-06 15:27:38 [facility] Postural dizziness Postural dizziness Disease Resolve d 2015-07 0-20 00:00: 00 2016-10-06 00:00:00 2016-10-06 15:27:07 [facility] Cramping complicati ng , antepartum Cramping complicati ng , antepartum Disease Resolve d 4-18 00:00: 00 2016-10-06 00:00:00 2016-10-06 15:26:10 [facility] Tobacco smoking complicati ng Tobacco smoking complicati ng Disease Resolve d 10-19 00:00: 00 2016-10-06 00:00:00 2022-01-17 00:40:15 [facility] 32 weeks gestation of 32 weeks gestation of Disease Resolve d 2015-07 006 00:00: 00 2016-06-07 00:00:00 2016-06-07 11:35:47 [facility] Threatened labor, third trimester Threatened labor, third trimester Disease Resolve d 2015-07 006 00:00: 00 2016-06-07 00:00:00 2016-06-07 11:35:42 [facility] AMA (advanced maternal age) multigravi da 35+, unspecifie d trimester AMA (advanced maternal age) multigravi da 35+, unspecifie d trimester Disease Resolve d 8 00:00: 00 2016-06-07 00:00:00 2022-01-17 00:41:37 [facility] High-risk High-risk Disease Resolve d 10-19 00:00: 00 2016-06-07 00:00:00 2016-06-07 11:35:53 [facility] Multiparit y Multiparit y Disease Resolve d 10-19 00:00: 00 2016-06-07 00:00:00 2016-06-07 11:35:50 [facility] Glucosuria Glucosuria Disease Resolve d 10-19 00:00: 00 2016-06-07 00:00:00 2016-06-07 11:35:39 [facility] Obese Obese Disease Resolve d 08-11 00:00: 00 2015-10-20 00:00:00 2015-10-20 06:42:02 [facility] Family planning counseling Family planning counseling Disease Resolve d 07-25 00:00: 00 2015-10-20 00:00:00 2022-01-17 00:39:13 [facility] Dysmenorrh ea Dysmenorrh ea Disease Resolve d 07-25 00:00: 00 2015-10-20 00:00:00 2015-10-20 06:41:55 [facility] Tobacco use disorder Tobacco use disorder Disease Resolve d 07-25 00:00: 00 2015-10-20 00:00:00 2015-10-20 06:42:05 [facility] Type 2 diabetes mellitus without complicati ons Type 2 diabetes mellitus without complicati ons Disease Resolve d 01-17 00:00: 00 2015-10-20 00:00:00 2022-01-17 00:31:13 [facility] Second-deg ree perineal laceration , with delivery Second-deg ree perineal laceration , with delivery Disease Resolve d 04-01 00:00: 00 2014-01-15 00:00:00 2014-01-15 18:24:23 [facility] GDM (gestation al diabetes mellitus), class A1 GDM (gestation al diabetes mellitus), class A1 Disease Resolve d 04-01 00:00: 00 2014-01-15 00:00:00 2014-01-15 18:24:21 [facility] Other and unspecifie d uterine inertia, 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, with delivery Disease Resolve d 03-23 00:00: 00 2011-04-01 00:00:00 2011-04-01 19:52:59 [facility] Grand multiparit y with current with baby delivered Grand multiparit y with current with baby delivered Disease Resolve d 2006-07 00:00: 00 2011-04-01 00:00:00 2015-04-04 17:36:53 [facility] anemia anemia Disease Resolve d 2006-07 0 00:00: 00 2011-04-01 00:00:00 2022-01-17 00:12:00 [facility] First degree perineal laceration during delivery First degree perineal laceration during delivery Disease Resolve d 2006-07 0- 00:00: 00 2011-04-01 00:00:00 2022-01-17 00:12:00 [facility] Allergies, Adverse Reactions, Alerts Allergy Name Allergy Type Status Severity Reaction(s) Onset Date Inactive Date Treating Clinician Comments Source Prometha zine Hcl Propensi ty to adverse reaction s Active Unknown - See comments 10-09 00:00: 00 Akathisia [facility] PROMETHA ZINE HCL DRUG INGREDI Active Unknown-Cmnt 10-09 00:00: 00 [facility] Social History Social Habit Start Date Stop Date Quantity Comments Source Sexual orientation [facility] History of Social function 2024-04-07 00:00:00 2024-04-07 00:00:00 [facility] Alcoholic beverage intake 2024-04-07 00:00:00 2024-04-07 00:00:00 0 /d [facility] Alcohol intake 2023-08-04 00:00:00 2023-08-04 00:00:00 0 /d [facility] Tobacco use and exposure 2015-10-20 00:00:00 2015-10-20 00:00:00 Smokeless tobacco non-user [facility] History of tobacco use 2015-10-15 00:00:00 Cigarette Smoker [facility] Tobacco Comment 2015-07-25 00:00:00 2015-07-25 00:00:00 smokes 1-2 x per day [facility] Sex assigned at 1980 00:00:00 1980 00:00:00 [facility] Smoking Status Start Date Stop Date Source Ex-smoker 2015-10-20 00:00:00 2015-10-20 00:00:00 [facility] Medications Ordered Medication Name Filled Medication Name Start Date Stop Date Current Medication? Ordering Clinician Indication Dosage Frequency Signature (SIG) Comments Components Source iopamidol (ISOVUE 370-500 mL) injection 100 mL 2023-0706 02:30: 00 04-08 02:30 :00 No [id number] 100mL 100 mL, Intravenou s, ONCE, 1 dose, On 04/07/24 at 2130, Routine [facility] NaCl 0.9% (NS) bolus infusion 1,000 mL 2023-07 006 01:30: 00 04-08 02:00 :00 No 1000mL at 999 mL/hr, 1,000 mL, IV Infusion, ONCE, 1 dose, On 04/07/24 at 2030, [facility] diphenhydrA MINE:lidoca ine 2% viscous:maa lox 1:1:1 ([facility]) oral suspension 15 mL 2023-07 006 00:45: 00 04-08 01:04 :00 No 15mL 15 mL, Oral, ONCE, 1 dose, On 04/07/24 at 1945, Routine [facility] famotidine (PEPCID (PF)) injection 20 mg 2023-07 0 00:45: 00 04-08 01:04 :00 No 20mg 20 mg, Slow IV Push, ONCE, 1 dose, On 04/07/24 at 194, [facility] sucralfate 1 gram tablet 2023-07 0 00:00: 00 Yes [id number] 1g Take 1 tablet by mouth before meals and at bedtime. [facility] omeprazole 40 mg capsule 2023-07 0 00:00: 00 05-08 05:59 :00 Yes [id number] 40mg Take 1 capsule by mouth daily for 30 doses. [facility] cefTRIAXone (ROCEPHIN) 1,000 mg in NaCl 0.9% (NS) 100 mL MINI-BAG 08-05 02:45: 00 08-05 03:22 :00 No 1000mg 1,000 mg, IV Piggyback, ONCE, 1 dose, On [place] 08/04/23 at 2045, Administer over 30 Minutes, 100 mL
Reas on for Anti-Infec tive: Empiric Therapy for Suspected Infection< br>Empiric Therapy Site: Abdominal< br>Duratio n of therapy: Once (ED) [facility] ondansetron (ZOFRAN (PF)) injection 4 mg 08-05 01:15: 00 08-05 02:42 :00 No 4mg 4 mg, Slow IV Push, ONCE, 1 dose, On [place] 08/04/23 at 1915, [facility] famotidine (PEPCID (PF)) injection 20 mg 08-05 01:15: 00 08-05 02:43 :00 No 20mg 20 mg, Slow IV Push, ONCE, 1 dose, On [facility] 08/04/23 at 1915, JESSICA [facility] maalox:diph enhydrAMINE :lidocaine 2 % viscous 1:1:1 (FIRST-MOUT [facility]) oral suspension 15 mL 08-05 01:15: 00 08-05 02:41 :00 No 15mL 15 mL, Oral, ONCE, 1 dose, On [place] 08/04/23 at 1915, Routine [facility] sucralfate 1 gram tablet 08-04 00:00: 00 09-03 05:59 :00 No [id number] 1g Take 1 tablet by mouth before meals and at bedtime for 30 days. [facility] famotidine (PEPCID) 40 mg tablet 08-04 00:00: 00 09-03 05:59 :00 No [id number] 40mg Take 1 tablet by mouth daily for 30 days. [facility] cephALEXin 500 mg capsule 08-04 00:00: 00 08-15 05:59 :00 No [id number] 500mg Take 1 capsule by mouth 2 (two) times daily for 10 days. [facility] ondansetron 4 mg disintegrat ing tablet 08-04 00:00: 00 08-15 05:59 :00 No [id number] 4mg Take 1 tablet by mouth every 8 (eight) hours as needed for Nausea and Vomiting (N/V) for up to 10 days. [facility] naproxen 500 mg tablet 7-04 00:00: 00 Yes [id number] 500mg Take 1 tablet by mouth 2 (two) times daily with meals. [facility] metFORMIN 500 mg tablet 3-05 00:00: 00 Yes [id number] 500mg Take 1 tablet by mouth 2 (two) times daily. [facility] cephALEXin (KEFLEX) 500 mg capsule 05 00:00: 00 08-04 00:00 :00 No [id number] 500mg Take 1 capsule by mouth 3 (three) times daily. [facility] omeprazole 40 mg capsule 02-09 00:00: 00 Yes [id number] 40mg Take 1 capsule by mouth daily. [facility] Immunizations Ordered Immunization Name Filled Immunization Name Date Status Comments Source TDAP 2017-02-10 00:00:00 Completed [facility] Influenza Virus Vaccine Quad IM 3+ YRS 2016-04-19 00:00:00 Completed TDAP 2016-04-19 00:00:00 Completed Influenza Virus Vaccine 2011-04-03 00:00:00 Completed [facility] TDAP 2010-09-14 00:00:00 Completed [facility] Rubella 2010-09-14 00:00:00 Completed Influenza Virus Vaccine Unknown Completed [facility] TDAP Unknown Completed [facility] Rubella Unknown Completed [facility] Influenza Virus Vaccine Quad IM 3+ YRS Unknown Completed [facility] Influenza Virus Vaccine Unknown Completed [facility] TDAP Unknown Completed [facility] Rubella Unknown Completed [facility] Influenza Virus Vaccine Quad IM 3+ YRS Unknown Completed [facility] Vital Signs Vital Name Observation Time Observation Value Comments S ource Systolic blood pressure 2024-04-08 02:40:00 134 mm[Hg] [facility] Diastolic blood pressure 2024-04-08 02:40:00 89 mm[Hg] [facility] Heart rate 2024-04-08 02:40:00 80 /min [facility] Body temperature 2024-04-08 02:40:00 36.89 Janiya [facility] Respiratory rate 2024-04-08 02:40:00 18 /min [facility] Oxygen saturation in Arterial blood by Pulse oximetry 2024-04-08 02:40:00 100 /min [facility] Body weight 2024-04-08 00:23:00 83.915 kg [facility] BMI 2024-04-08 00:23:00 31.76 kg/m2 [facility] Systolic blood pressure 2023-08-05 03:59:00 120 mm[Hg] [facility] Diastolic blood pressure 2023-08-05 03:59:00 73 mm[Hg] [facility] Heart rate 2023-08-05 03:59:00 67 /min [facility] Respiratory rate 2023-08-05 03:59:00 18 /min [facility] Oxygen saturation in Arterial blood by Pulse oximetry 2023-08-05 03:59:00 99 /min [facility] Body temperature 2023-08-05 00:47:00 36.72 Janiya [facility] Procedures Procedure Date / Time Performed Performing Clinician Source CT ABDOMEN PELVIS W CONTRAST 2024-04-08 01:41:20 Nancie Banda [facility] POCT TEST 2024-04-08 01:04:00 Elina Banda [facility] URINALYSIS 2024-04-08 00:59:00 Nancie Banda [facility] LIPASE 2024-04-08 00:47:00 Nancie Banda [facility] BASIC METABOLIC PANEL (NA, K, CL, CO2, GLUCOSE, BUN, CREATININE, CA) 2024-04-08 00:47:00 Nancie Banda [facility] CBC WITH DIFF 2024-04-08 00:47:00 Nancie Banda [facility] XR CHEST 1 VW 2023-08-05 02:59:00 [facility] GAS 2023-08-05 02:02:00 Berenice Patino [facility] LIPASE 2023-08-05 02:01:00 Berenice Patino Un [facility] BETA HYDROXY-BUTYRATE 2023-08-05 02:01:00 Berenice Patino [facility] TROPONIN I 2023-08-05 02:01:00 Berenice Patino [facility] COMP. METABOLIC PANEL ([id number]) 2023-08-05 02:01:00 Berenice Patino [facility] CBC WITH DIFF 2023-08-05 02:01:00 [facility] GLYCOSYLATED HEMOGLOBIN (A1C) 2023-08-05 02:01:00 Berenice Patino [facility] URINALYSIS 2023-08-05 02:01:00 [facility]USAL FOR DIAGNOSIS AND TREATMENT 2023-08-05 00:39:40 Doctor Unassigned, [place] [facility] Encounters Start Date/Time End Date/Time Encounter Type Admission Type Attending [facility] Care Department Encounter ID Source 2021-05-04 11:53:02 Emergency [facility] [id number] [facility] 2021-05-04 05:49:40 Emergency [facility] [id number] [facility] 2021-05-03 03:43:41 Emergency [facility] [id number] [facility] 2021-05-01 11:24:45 Emergency [facility] [id number] [facility] 2021-05-01 07:34:38 Emergency [facility] [id number] [facility] 2024-04-07 19:25:00 2024-04-07 21:53:00 Emergency X NANCIE BANDA [facility]EL[facility]E [facility] [id number] [facility] 2024-04-07 19:25:00 2024-04-07 21:53:00 Emergency Nancie Banda [facility] 1.84.114 [id number] 4.2.7.2.686 [id number] [facility] 2023-10-07 16:35:59 2023-10-07 16:35:59 Outpatient SFA SFA [id number] [facility] 2023-08-08 00:00:00 2023-08-08 00:00:00 Patient Secure Msg Doctor Unassigned, [place] [facility] 1.840.114 350.1.13.10 4.2.7.2.686 [id number] [facility] 2023-08-04 18:47:00 2023-08-04 22:35:00 Emergency X BERENICE PATINO [facility] E[facility] [id number] [facility] 2023-08-04 18:47:00 2023-08-04 22:35:00 Emergency Berenice Patino [facility] [id number] 350.1.13.10 4.2.7.2.686 [id number] [facility] 2022-06-10 08:15:00 2022-06-10 08:15:00 Outpatient R BOUCHRA MULLINS [facility] [id number] [facility] 2020-02-10 18:50:00 2020-02-10 23:45:00 Emergency Bonita Marino [facility] [id number] 350.1.13.10 4.2.7.2.686 [id number] 2020-01-21 08:10:19 2020-01-21 11:57:00 Emergency Hema Jean-Baptiste [facility] [id number] 350.1.13.10 4.2.7.2.686 [id number] 2019-06-04 20:45:32 2019-06-05 02:02:00 Emergency X TANA SMITH [facility] ERT [id number] [facility] Results Test Description Test Time Test Comments Results Result Comments Source CT ABDOMEN PELVIS W CONTRAST 02:06:16 Ordering physician: NANCIE BANDA Indication: Acute generalized abdominal pain COMPARISON: CT abdomen and pelvis dated 01/04/2021 TECHNIQUE: Axial images of the abdomen and pelvis are performed followingadministration of intravenous contrast material. Images were reformatted inthe coronal and sagittal plane. CT scan was performed according to ALARA(as low as reasonably achievable) policy. FINDINGS: There is linear atelectasis in the lung bases. The gallbladder isnot visualized and may be surgically absent. There is fatty infiltration ofthe liver, which is enlarged at 23 cm in long axis. The spleen, adrenalglands and pancreas are within normal limits. The kidneys are normal inappearance bilaterally without hydronephrosis. No abdominal aortic aneurysmor dissection is appreciated. There is no free fluid in the pelvis. The CT appearance of the uterus andovaries is within normal limits. There is no bowel obstruction, widespreaddiverticulosis or acute diverticulitis. The appendix is not separatelyidentified. ?Bone windows through the abdomen and pelvis demonstrate noosseous destructive lesion. [facility]:13:29* Test Item Value Reference Range Interpretation Comme nts LIPASE (test code = 4348892590) 192 U/L 0-220 Lab Interpretation (test cod e = 28268-6) [id number] 01:04:00* Test Item Value Reference Range Interpretation Comme nts POCT PREG (test code = 1605) Negative On board controls acceptable with C Line (test code = 3574) Yes Lab Interpretation (test cod e = 25849-0) [facility] [id number] 00:59:08* Test Item Value Reference Range Interpretation Comme nts WBC (test code = 6690-2) 7.15 4.30-11.10 RBC (test code = 789-8) 4.73 3.93-5.25 HGB (test code = 718-7) 13.0 g/dL 11.6-15.0 HCT (test code = 4544-3) 40.3 % 35.7-45.2 MCV (test code = 787-2) 85.2 fL 80.6-95.5 MCH (test code = 785-6) 27.5 pg 25.9-32.8 MCHC (test code = 786-4) 32.3 g/dL 31.6-35.1 RDW-SD (test code = 24178-2) 41.1 fL 39.0-49.9 RDW-CV (test code = 788-0) 13.4 % 12.0-15.5 PLT (test code = 777-3) 381 166-358 H MPV (test code = 37280-2) 9.8 fL 9.5-12.9 NRBC/100 WBC (test code = 0866284240) 0.0 0.0-10.0 NRBC x10^3 (test code = 6241688884) See_Comment [Automated Gridsuma ge] The system which generated this result transmitted reference range: 10*3/?L. The reference range was not used to interpret this result as normal/abnormal. GRAN MAT (NEUT) % (test code = 770-8) 64.9 % IMM GRAN % (test code = 5987999039) 0.10 % LYMPH % (test code = 736-9) 29.1 % MONO % (test code = 5905-5) 5.0 % EOS % (test code = 713-8) 0.8 % BASO % (test code = 706-2) 0.1 % GRAN MAT x10^3(ANC) (test code = 3601223875) 4.63 10*3/uL 1.88-7.09 IMM GRAN x10^3 (test code = 5859605353) 0.00-0.06 LYMPH x10^3 (test code = 731-0) 2.08 10*3/uL 1.32-3.29 MONO x10^3 (test code = 742-7) 0.36 10*3/uL 0.33-0.92 EOS x10^3 (test code = 711-2) 0.06 10*3/uL 0.03-0.39 BASO x10^3 (test code = 704-7) 0.01-0.07 Lab Interpretation (test code = 94325-9) [facility] [id number] 03:18:47EXAM: XR CHEST 1 08/04/2023 8:54 PM HISTORY: 42 years old Female with chest pain TECHNIQUE: Portable AP view of the chest. COMPARISON: 01/04/2021 FINDINGS: Lines/tubes and devices: None. Lungs and pleura: The lungs are clear. No focal consolidation,pneumothorax, or pleural effusion is seen. Cardiomediastinal: The cardiomediastinal silhouette is normal accountingfor technique. Musculoskeletal: No acute osseous abnormality[facility] [id number] 02:19:32* Test Item Value Reference Range Interpretation Comme nts PH (test code = 9834308600) 7.34 7.32-7.42 PCO2 ANGELO (test code = 7502180213) 47 41-51 PO2 ANGELO (test code = 5134548658) 29 25-40 HCO3 ANGELO (test code = 1780062997) 25 24-28 AC VBE(BEAKER) (test code = 8548734309) -1.1 mEq/L [facility] Notes Date/Time Note Provider Source 2024-04-07 21:52:19 Pt ao4 verbalized understanding of discharge. Pt not endorsing any ailments or distress. Resp e/u on RA. IV removed and secured. Pt walked off unit w papers and all belongings w/o incident. Discharge complete. Linda Seals RN [facility] 2024-04-07 20:34:[address] Murphy Hobson RN [facility] 2024-04-07 19:44:57 Pt ao4 presents ambulatory c/o strong RUQ pain since 3pm today. Pt reports she has chronic abdominal pain from gastric ulcers but today's pain has become intolerable. Pt reports the RUQ pain radiates straight through her back, unsure if it worsens w PO intake because she reports decrease in appetite. Pt reports last BM yesterday and denied any dysuria or changes in voiding habits. Pt denied any vomiting but endorses nausea. Pt resp e/u on RA. No distress noted or declared. Pt connected to serial VS monitoring. Call light in reach, bed locked and lowered. Will cont to assess and tx per plan of care. anesthesiology resident used. [facility] 2024-04-07 19:23:14 Markie Romeo is a 43 year old female who presents with a cc of RUQ/upper abdominal pain that radiates to her back for the past 3 hours, reports severe nausea, denies vomiting/diarrhea. Costa Kimball RN [facility] 2023-08-04 22:34:43 Pt ao4 verbalized understanding of discharge. Pt not endorsing any current ailments, concerns or distress. Pt resp e/u on RA. IV removed and secured. Pt walked off unit w papers and belongings w/o incident. Discharge complete. Y DIPPER Linda Seals RN [facility] 2023-08-04 21:57:16 Provider bedside [facility] 2023-08-04 21:43:48 Pt ao4 presents c/o abdominal pain x [...] assess and tx per plan of care. [facility] 2023-08-04 18:45:41 Markie Romeo is a 42 year old female reports to the ED c/o RUQ abdominal pain. Reports one episode of vomiting dark red blood last week and another this morning. Denies diarrhea. Hx of NIDDM. Respirations even and unlabored, NAD noted Y DIPPER Svetlana Dewitt RN [facility]
[2024-06-01] MEDS ORDERED: FAMOTIDINE 20 MG/2 ML VIAL IV ONE (15:08)
[2024-06-01] MEDS ORDERED: ONDANSETRON 4 MG/2 ML VIAL ONE (15:08)
[2024-06-01] MEDS ORDERED: KETOROLAC 30 MG/ML INJ ONE (15:08)
[2024-06-01] MEDS ORDERED: NA CHLORIDE 0.9% 1,000 ML ONE (15:08)
[2024-06-01 15:21] LABS: Absolute Eosinophils 0.1 K/uL (0-0.5); Absolute Lymphocytes (CBC) 2.6 K/uL (0.7-4.9); Absolute Monocytes 0.3 K/uL (0.1-1.3); Absolute Neutrophil 4.1 K/uL (1.8-8.0); Basophils % 0.4 % (0-1.3); Eosinophils % 0.9 % (0-4.4); Hematocrit 40.8 % (36.0-45.0); Hemoglobin 12.9 g/dL (12.0-15.0); Lymphocytes % 36.6 % (15.3-44.8); MCH 26.6 pg (27.0-35.0); MCHC 31.7 g/dL (32.0-36.0); MCV 83.9 fL (80-100); MPV 8.2 fL (7.6-11.3); Monocytes % 4.2 % (3.3-12.3); Neutrophils % 57.9 % (41.7-73.7); Platelets 441 thou/uL (152-406); RBC Red Blood Cell Count 4.87 M/uL (3.86-4.86)
[2024-06-01 15:38] LABS: Anion Gap 9.5 mEq/L (5.0-15.0); Bilirubin Total 0.3 mg/dL (0.2-1.0); Potassium 3.5 mEq/L (3.5-5.1)
[2024-06-01 15:39] LABS: Albumin 3.5 g/dL (3.4-5.0); Albumin/Globulin Ratio 0.8 (1.1-1.8); Globulin 4.4 g/dL (2.3-3.5); Protein, Total 7.9 g/dL (6.4-8.2)
[2024-06-01 15:50] LABS: SARS-CoV-2 Antigen CONTROL BLUE LINE VIS/BG OK; SARS-CoV-2 Antigen Rapid Res Negative (Negative)
[2024-06-01 16:42] LABS: Urine Bilirubin NEGATIVE (Negative); Urine Clarity Clear (Clear); Urine Color Colorless (Yellow); Urine Glucose 3+ (Negative)
[2024-06-01 16:43] LABS: Urine Blood Negative (Negative); Urine Ketones NEGATIVE (Negative); Urine Nitrite NEGATIVE (Negative); Urine Protein NEGATIVE (Negative); Urine Urobilinogen Normal mg/dL (0.2-1.0)
[2024-06-01 16:44] LABS: Sqamous Epithelial <5 /HPF (None Seen); Urine Ascorbic Acid Negative (Negative); Urine Bacteria None Seen /HPF (<20); Urine Culture Reflex Order NOT NEEDED; Urine Microscopic Reflex YN ORDER UMIC; Urine RBC <5 /HPF (None Seen); Urine WBC <5 /HPF (<5)
[2024-06-01] MEDS ORDERED: INSULIN REGULAR (HUMAN) 100 UNIT/ML ONE (16:49)
--- NOTE | 2024-06-01 17:11 | RAD REPORT ---
EXAMINATION: CT ABDOMEN AND PELVIS WITH CONTRAST CLINICAL INDICATION: Female, 43 years old.ABD PAIN TECHNIQUE: CT abdomen and pelvis was performed, after the administration of IV contrast[facility]. Axial, sagittal and coronal reconstructions were obtained. One or more of the following dose reduction techniques were used: Automated exposure control, adjustment of the mA and/o r kV according to patient size, and/or iterative reconstruction. Unless otherwise specified, incidental findings do not require dedicated imaging follow-up. [id number]. COMPARISON: 07/24/2023 FINDINGS: LOWER CHEST: The visualized lung bases are clear. LIVER: Hepatic steatosis GALLBLADDER/BILE DUCT: Classically. Mild extrahepatic biliary ductal prominence unchanged likely rela kirit to cholecystectomy state.? PANCREAS: No significant abnormality. SPLEEN: Normal size. No focal lesion. ADRENALS: Normal; no mass. KIDNEYS AND URETERS: Normal size and contour. No hydronephrosis. GASTROINTESTINAL TRACT: Stomach is non-dilated. Small bowel has normal course and caliber. No colonic wall thickening or pericolonic inflammatory changes. Normal appendix. PERITONEUM: No ascites. LYMPH NODES: No lymphadenopathy. ABDOMINAL AORTA AND OTHER VESSELS: Normal caliber aorta and IVC. URINARY BLADDER: Trace bladder gas and mild bladder wall thickening. REPRODUCTIVE ORGANS: No pathologic process MUSCULOSKELETAL: No acute or suspicious osseous abnormality. ADDITIONAL FINDINGS: None. IMPRESSION: Possible cystitis. Normal appendix. No hydronephrosis.
--- NOTE | 2024-06-01 17:48 | ER ---
Nurse's Notes [facility] Name: Usha Romeo Age: 43 yrs Sex: Female : 1980 Arrival Date: 06/01/2024 Time: 14:38 Bed 19 Private MD: Diagnosis: Upper abdominal pain, unspecified;Type 2 diabetes mellitus with hyperglycemia;Personal history of peptic ulcer disease Presentation: 06/01 14:50 Chief complaint: Patient states: upper abd pain, chills and nausea since this am. ss Coronavirus screen: Client denies travel out of the [place] in the last 14 days. Ebola Screen: Patient denies exposure to infectious person. Patient denies travel to an Ebola-affected area in the 21 days before illness onset. Initial Sepsis Screen: Does the patient meet any 2 criteria? No. Patient's initial sepsis screen is negative. Does the patient have a suspected source of infection? No. Patient's initial sepsis screen is negative. Risk Assessment: Do you want to hurt yourself or someone else? Patient reports no desire to harm self or others. Onset of symptoms was June 01, 2024. 14:50 Method Of Arrival: Ambulatory ss 14:50 Acuity: KEO 3 ss Historical: - Allergies: 14:51 No Known Allergies; ss - PMHx: 14:51 Anemia; diabetes mellitus; kidney infection; Ulcers; ss - PSHx: 14:51 Cholecystectomy; ss - Immunization history:: Adult Immunizations not immunized. - Infectious Disease History:: Denies. - Social history:: Smoking status: Patient denies any tobacco usage or history of. Screenin:52 [facility] ED Fall Risk Assessment (Adult) History of falling in the last 3 months, rs5 including since admission No falls in past 3 months (0 pts) Confusion or Disorientation No (0 pts) Intoxicated or Sedated No (0 pts) Impaired Gait No (0 pts) Mobility Assist Device Used No (0 pt) Altered Elimination No (0 pt) Score/Fall Risk Level 0 - 2 = Low Risk Oriented to surroundings, Maintained a safe environment. Abuse screen: Denies threats or abuse. Nutritional screening: No deficits noted. Tuberculosis screening: No symptoms or risk factors identified. Assessment: 14:42 General: Appears uncomfortable, Behavior is cooperative. Pain: Complains of pain in mid rs5 epigastric Pain currently is 4 out of 10 on a pain scale. Quality of pain is described as burning, aching, Is continuous. Neuro: Level of Consciousness is awake, alert, obeys commands, Oriented to person, place, time, situation. Cardiovascular: Patient's skin is warm and dry. Respiratory: Airway is patent Respiratory effort is even, unlabored, Respiratory pattern is regular, symmetrical. 14:42 GI: Abdomen is round non-distended, Abd is soft and non tender X 4 quads. Reports rs5 nausea, vomiting. : No signs and/or symptoms were reported regarding the genitourinary system. EENT: No signs and/or symptoms were reported regarding the EENT system. Derm: Skin is intact, Skin is pink, warm \T\ dry. Musculoskeletal: Range of motion: intact in all extremities. 16:01 Reassessment: Patient and/or family updated on plan of care and expected duration. Pain rs5 level reassessed. Patient is alert, oriented x 3, equal unlabored respirations, skin warm/dry/pink. 17:10 Reassessment: Patient and/or family updated on plan of care and expected duration. Pain rs5 level reassessed. Patient is alert, oriented x 3, equal unlabored respirations, skin warm/dry/pink. 18:07 Reassessment: Patient and/or family updated on plan of care and expected duration. Pain rs5 level reassessed. Patient is alert, oriented x 3, equal unlabored respirations, skin warm/dry/pink. Vital Signs: 14:50 BP 155 / 84; Pulse 74; Resp 17; Temp 98.3(O); Pulse Ox 99% ; rs5 15:53 BP 145 / 80; Pulse 77; Resp 17; Pulse Ox 98% on R/A; rs5 18:10 BP 142 / 79; Pulse 74; Resp 17; Pulse Ox 99% on R/A; rs5 ED Course: 14:39 Patient arrived in ED. im 14:40 Inserted saline lock: 22 gauge in left antecubital area, using aseptic technique. Blood rs5 collected. Flushed with 10 mL NS. 14:41 Anastasia Malin [facility] sb4 14:41 Cuba Edwards MD is Attending Physician. sb4 14:44 Jamar Hsieh, MADALYN is Primary Nurse. rs5 14:51 Triage completed. ss 14:52 Patient has correct armband on for positive identification. Placed in gown. Bed in low rs5 position. Call light in reach. Side rails up X2. 14:52 No provider procedures requiring assistance completed. rs5 15:56 Radiology exam delayed due to test not completed at this time. jc4 17:00 CT Abd/Pelvis - IV Contrast Only In Process Unspecified. EDMS 17:47 Louis Naik MD is Referral Physician. sb4 18:15 IV discontinued, intact, bleeding controlled, No redness/swelling at site. Pressure rs5 dressing applied. Administered Medications: 15:15 Drug: Famotidine IVP 20 mg IVP once; dilute with 10 mL 0.9% NaCl; give over 2 minutes rs5 Route: IVP; Site: left antecubital; 15:33 Follow up: Response: No adverse reaction rs5 15:15 Drug: TORadol - Ketorolac IVP 15 mg IVP once Route: IVP; Site: left antecubital; rs5 15:35 Follow up: Response: No adverse reaction; Pain is decreased rs5 15:15 Drug: Ondansetron IVP 4 mg IVP once; over 2 minutes Route: IVP; Site: left antecubital; rs5 15:35 Follow up: Response: No adverse reaction; Nausea is decreased rs5 15:15 Drug: NS 0.9% IV 1000 ml IV at 1 bolus Per protocol; to be given as a bolus over 60 rs5 minutes Route: IV; Rate: 1 bolus; Site: left antecubital; 16:20 Follow up: Response: No adverse reaction; IV Status: Completed infusion rs5 17:07 Drug: Insulin Regular Human IVP 10 units IVP once {Co-Signature: tm6 (Xena Regalado rs5 RN).} Route: IVP; Site: right antecubital; 17:30 Follow up: Response: No adverse reaction; Other; blood sugar decreased rs5 Medication: 15:53 VIS not applicable for this client. rs5 Intake: Outcome: 17:48 Discharge ordered by . sb4 18:15 Discharged to home ambulatory, rs5 18:15 Condition: stable rs5 18:15 Discharge instructions given to patient, family, Instructed on discharge instructions, follow up and referral plans. medication usage, Demonstrated understanding of instructions, follow-up care, medications, Prescriptions given X 2, 18:18 Patient left the ED. rs5 Signatures: Dispatcher [employer] EDMS Diana Barron, RN RN Anastasia Cox PA-C PA-C sb4 Jamar Hsieh RN RN rs5 Saba Miranda Justin jc4 Xena Regalado RN tm6 Corrections: (The following items were deleted from the chart) 19:26 18:15 Discharge instructions given to patient, family, Instructed on discharge rs5 instructions, follow up and referral plans. Demonstrated understanding of instructions, follow-up care, rs5
--- NOTE | 2024-06-01 17:48 | EDPHYS ---
Physician Documentation [facility] Name: Usha Romeo Age: 43 yrs Sex: Female : 1980 Arrival Date: 06/01/2024 Time: 14:38 Bed 19 Private MD: ED Physician Cuba Edwards HPI: 06/01 16:03 This 43 yrs old Female presents to ER via Ambulatory with complaints of sb4 Nausea/Vomiting, chills. 16:03 . sb4 16:04 patient reports nausea, vomiting, diarrhea, abdominal pain, chills since this morning. sb4 reports a history of "ulcers" and type 2 diabetes but is not on any daily medications. denies any melanotic stools or hematemesis. denies any alcohol abuse or excessive NSAID use. Historical: - Allergies: 14:51 No Known Allergies; ss - PMHx: 14:51 Anemia; diabetes mellitus; kidney infection; Ulcers; ss - PSHx: 14:51 Cholecystectomy; ss - Immunization history:: Adult Immunizations not immunized. - Infectious Disease History:: Denies. - Social history:: Smoking status: Patient denies any tobacco usage or history of. ROS: 16:04 Respiratory: Negative for shortness of breath, cough, wheezing, and pleuritic chest sb4 pain, 16:04 Constitutional: Positive for chills, 16:04 Abdomen/GI: Positive for abdominal pain, nausea, vomiting, and diarrhea, 16:04 All other systems are negative, Exam: 16:04 Constitutional: This is a well developed, well nourished patient who is awake, alert, sb4 and in no acute distress. Head/Face: Normocephalic, atraumatic. Eyes: Extra-ocular motions intact. Periorbital areas with no swelling, redness, or edema. ENT: Mucous membranes moist. Cardiovascular: Regular rate and rhythm with a normal S1 and S2. Respiratory: No increased work of breathing, no retractions or nasal flaring. Abdomen/GI: Soft, non-tender, no distension. Skin: Warm, dry with normal turgor. Normal color with no rashes, no lesions, and no evidence of cellulitis. MS/ Extremity: Pulses equal, no cyanosis. Neurovascular intact. Full, normal range of motion. Vital Signs: 14:50 BP 155 / 84; Pulse 74; Resp 17; Temp 98.3(O); Pulse Ox 99% ; rs5 15:53 BP 145 / 80; Pulse 77; Resp 17; Pulse Ox 98% on R/A; rs5 18:10 BP 142 / 79; Pulse 74; Resp 17; Pulse Ox 99% on R/A; rs5 MDM: 14:41 Medical Screening Exam initiated sb4 17:47 Data reviewed: vital signs, nurses notes, lab test result(s), radiologic studies, and sb4 as a result, I will discharge patient. Counseling: I had a detailed discussion with the patient and/or guardian regarding the historical points, exam findings, and any diagnostic results supporting the discharge/admit diagnosis, lab results, radiology results, the need for outpatient follow up, a division controller, to return to the emergency department if symptoms worsen or persist or if there are any questions or concerns that arise at home. 06/01 15:01 Order name: CBC with Diff; Complete Time: 15:22 sb4 06/01 15:01 Order name: CMP; Complete Time: 15:39 sb4 06/01 15:01 Order name: Lipase; Complete Time: 15:39 sb4 06/01 15:01 Order name: Test, Urine; Complete Time: 16:39 sb4 06/01 15:01 Order name: Urinalysis w/ reflexes; Complete Time: 16:45 sb4 06/01 15:01 Order name: SARS RAPID; Complete Time: 15:50 sb4 06/01 15:01 Order name: Flu; Complete Time: 15:52 sb4 06/01 17:56 Order name: Glucose, Ancillary Testing; Complete Time: 17:57 EDMS 06/01 15:01 Order name: CT Abd/Pelvis - IV Contrast Only; Complete Time: 17:14 sb4 06/01 15:01 Order name: IV Saline Lock; Complete Time: 15:20 sb4 06/01 15:01 Order name: Labs collected and sent; Complete Time: 15:20 sb4 06/01 17:15 Order name: PO challenge; Complete Time: 17:50 sb4 Administered Medications: 15:15 Drug: Famotidine IVP 20 mg IVP once; dilute with 10 mL 0.9% NaCl; give over 2 minutes rs5 Route: IVP; Site: left antecubital; 15:33 Follow up: Response: No adverse reaction rs5 15:15 Drug: TORadol - Ketorolac IVP 15 mg IVP once Route: IVP; Site: left antecubital; rs5 15:35 Follow up: Response: No adverse reaction; Pain is decreased rs5 15:15 Drug: Ondansetron IVP 4 mg IVP once; over 2 minutes Route: IVP; Site: left antecubital; rs5 15:35 Follow up: Response: No adverse reaction; Nausea is decreased rs5 15:15 Drug: NS 0.9% IV 1000 ml IV at 1 bolus Per protocol; to be given as a bolus over 60 rs5 minutes Route: IV; Rate: 1 bolus; Site: left antecubital; 16:20 Follow up: Response: No adverse reaction; IV Status: Completed infusion rs5 17:07 Drug: Insulin Regular Human IVP 10 units IVP once {Co-Signature: tm6 (Xena Regalado rs5 RN).} Route: IVP; Site: right antecubital; 17:30 Follow up: Response: No adverse reaction; Other; blood sugar decreased rs5 Disposition: 19:17 Co-signature as Attending Physician, Cuba Edwards MD I agree with the assessment and rt plan of care. Disposition Summary: 06/01/24 17:48 Discharge Ordered Notes: Location: Home sb4 Problem: new sb4 Symptoms: have improved sb4 Condition: Stable sb4 Diagnosis - Upper abdominal pain, unspecified sb4 - Type 2 diabetes mellitus with hyperglycemia sb4 - Personal history of peptic ulcer disease sb4 Followup: sb4 - With: Louis Naik MD - When: As needed - Reason: Further diagnostic work-up, Recheck today's complaints, Re-evaluation by your physician Discharge Instructions: - Discharge Summary Sheet sb4 - Abdominal Pain, Adult sb4 - Peptic Ulcer, [id number] sb4 - Peptic Ulcer Eating Plan rs5 Forms: - Work release form sb4 - Patient Portal Instructions sb4 - Leadership Thank You Letter sb4 Prescriptions: - Protonix 40 mg Oral Tablet - take 1 tablet ORAL route once daily; 30 tablet; Refills: 0, Product Selection sb4 Permitted - dicyclomine 10 mg Oral capsule - take 1 capsule ORAL route 3 times per day; 20 capsule; Refills: 0, Product sb4 Selection Permitted Signatures: Dispatcher [employer] Diana Yap RN RN ss Anastasia Malin PATrinityC PA-C sb4 Cuba Edwards MD MD rt Jamar Hsieh, MADALYN RN rs5 Xena Regalado RN tm6 Corrections: (The following items were deleted from the chart) 15:02 15:02 CBC+H.LAB.BRZ ordered. EDMS EDMS 15:02 15:02 COMPREHENSIVE METABOLIC PANEL+C.LAB.BRZ ordered. EDMS EDMS 15:02 15:02 LIPASE+C.LAB.BRZ ordered. EDMS EDMS 15:02 15:02 Test, Urine+UC.LAB.BRZ ordered. EDMS EDMS 15:02 15:02 Urinalysis+U.LAB.BRZ ordered. EDMS EDMS 15:02 15:02 SARS-COV-2 Antigen Rapid+I.LAB.BRZ ordered. EDMS EDMS 15:02 15:02 Influenza Screen (A \\T\\ B)+BA.LAB.BRZ ordered. EDMS EDMS 15:02 15:02 Abdomen Pelvis W Con+CT.RAD.BRZ ordered. EDMS EDMS
[2024-06-01 21:10] VITALS: TEMP 98.3
[2024-06-01 21:16] VITALS: BP 145/80; O2SAT 98
== END 2024-06-01 18:18 | disposition home or self-care (01) ==
LOC: ER 14:38
DX: E11.65 Type 2 diabetes mellitus with hyperglycemia (principal); Z87.11 Personal history of peptic ulcer disease
CPT/HCPCS: 36415; 74177; 80053; 81001; 81025; 82947; 83690; 85025; 87804; 87811; J2405; J7030; Q9967